=== PATIENT | female | born 1990 | race Hispanic/Latino ===

== ENCOUNTER 2017-02-10 15:27 | Emergency (ER) | payer SELFPAY ==
[2017-02-10] MEDS ORDERED: Ondansetron ODT 4 MG TAB ONE (15:44)
[2017-02-10 18:14] LABS: Bilirubin Negative (Negative); Blood, Urine Negative (Negative); Glucose, Urine (Dipstick) Negative (Negative); Ketone, Urine Negative (Negative); Nitrite Negative (Negative); Protein, Urine (Dipstick) Negative (Neg-Trace)
[2017-02-10 18:16] LABS: Bacteria/HPF 3+ HPF (None Seen); Hyaline Casts/LPF 0-3 HYALINE CAST LPF (0-3 Hyaline); WBC/HPF 21-50 HPF (0-3)
[2017-02-10 19:03] LABS: #Basophils 0.1 thou/uL (0.0-0.2); #Eosinphils 0.3 thou/uL (0.0-0.7); #Lymphocytes 1.7 thou/uL (1.20-3.40); #Monocytes 0.4 thou/uL (0.11-0.59); #Neutrophils 4.2 thou/uL (1.40-6.50); %Basophils 1.2 % (0.0-1.0); %Eosinophils 4.8 % (0.0-10.0); %Lymphocytes 25.5 % (21.0-51.0); %Monocytes 6.5 % (0.0-10.0); Hematocrit 38.1 % (36.0-47.0); Mean Platelet Volume 8.1 fL (7.4-10.4); White Blood Cell (WBC) Count 6.8 thou/uL (4.8-10.8)
[2017-02-10 19:15] LABS: ALT (SGPT) 27 U/L (8-55); AST (SGOT) 20 U/L (5-34); Alkaline Phosphatase 61 U/L (40-150); Anion Gap 14 mmol/L (10-20); BUN (Urea Nitrogen) 9 mg/dL (7.0-18.7); Bilirubin, Total 0.4 mg/dL (0.2-1.2); Calc. Creatinine Clearance 0 mL/min (70-130); Calcium 9.1 mg/dL (7.8-10.44); Carbon Dioxide 23 mmol/L (22-29); Chloride 103 mmol/L (98-107); Estimated GFR-MDRD Greater than 90; Globulin 3.5 g/dL (2.4-3.5); Lipase 29 U/L (8-78); Protein, Total 7.7 g/dL (6.0-8.3)
--- NOTE | 2017-02-10 21:32 | ULT ---
ULTRASOUND GALLBLADDER RIGHT UPPER QUADRANT: Date: 02/10/17 HISTORY: Right upper quadrant pain. COMPARISON: Prior ultrasound dated 05/13/15. TECHNIQUE: Real-time Delong scale and color Doppler with spectral analysis of right upper quadrant was performed w ith the curvilinear transducer. FINDINGS: The hepatic echotexture is increased. No cholelithiasis. Pancreas is not well seen. Gallbladder wall thickness is normal. Right kidney measures 10.9 x 4.3 x 5.4 cm. Sonographic Man's sign is negative . The common bile duct measures 4.0 mm and is normal. IMPRESSION: 1. No evidence of cholelithiasis or cholecystitis. 2. Increased hepatic echotexture indicative of steatosis. POS: AYUSHH
== END 2017-02-10 22:08 | disposition home or self-care (01) ==
LOC: ERS 15:27
DX: N39.0 Urinary tract infection, site not specified (principal); E03.9 Hypothyroidism, unspecified; E66.9 Obesity, unspecified
CPT/HCPCS: 76705; 80053; 81003; 81015; 81025; 83690; 85025; Q0162

== ENCOUNTER 2017-04-26 20:30 | Emergency (ER) | payer SELFPAY ==
[2017-04-26] MEDS ORDERED: Acetaminophen 500 MG TAB ONE (21:58)
== END 2017-04-26 22:09 | disposition home or self-care (01) ==
LOC: ERS 20:30
DX: J02.9 Acute pharyngitis, unspecified (principal); E03.9 Hypothyroidism, unspecified; E66.9 Obesity, unspecified; Z79.899 Other long term (current) drug therapy
CPT/HCPCS: 87081; 87430; 99283

== ENCOUNTER 2017-08-21 18:04 | Emergency (ER) | payer SELFPAY ==
[2017-08-21 18:49] LABS: #Eosinphils 0.3 thou/uL (0.0-0.7); #Lymphocytes 1.5 thou/uL (1.20-3.40); #Monocytes 0.5 thou/uL (0.11-0.59); #Neutrophils 3.4 thou/uL (1.40-6.50); %Basophils 0.4 % (0.0-1.0); %Eosinophils 5.2 % (0.0-10.0); %Lymphocytes 26.6 % (21.0-51.0); %Monocytes 8.5 % (0.0-10.0); %Neutrophils 59.4 % (42.0-75.0); Hemoglobin 11.8 g/dL (12.0-16.0); Mean Corpuscular Hemoglobin 30.9 pg (27.0-31.0); Mean Corpuscular Volume 88.4 fl (81.0-99.0); Platelet Count 230 thou/uL (130-400); RBC Distribution Width 12.9 % (11.5-14.5); Red Blood Cell (RBC) Count 3.83 mill/uL (4.20-5.40); White Blood Cell (WBC) Count 5.7 thou/uL (4.8-10.8)
[2017-08-21 19:08] LABS: ALT (SGPT) 12 U/L (8-55); AST (SGOT) 11 U/L (5-34); Albumin 3.4 g/dL (3.5-5.0); Alkaline Phosphatase 48 U/L (40-150); Anion Gap 12 mmol/L (10-20); BUN (Urea Nitrogen) 5 mg/dL (7.0-18.7); Bilirubin, Total 0.2 mg/dL (0.2-1.2); Calc. Creatinine Clearance 0 mL/min (70-130); Calcium 9.5 mg/dL (7.8-10.44); Carbon Dioxide 21 mmol/L (22-29); Chloride 107 mmol/L (98-107); Estimated GFR-MDRD Greater than 90; Globulin 3.2 g/dL (2.4-3.5); Glucose 111 mg/dL (70-105); Potassium 3.2 mmol/L (3.5-5.1); Protein, Total 6.6 g/dL (6.0-8.3); Sodium 137 mmol/L (136-145)
[2017-08-21] MEDS ORDERED: Acetaminophen 500 MG TAB ONE (19:48)
[2017-08-21 19:51] LABS: Bilirubin Negative (Negative); Blood, Urine Negative (Negative); Clarity CLOUDY (Clear); Glucose, Urine (Dipstick) Negative (Negative); Leukocyte Large (Negative); Nitrite Negative (Negative); Protein, Urine (Dipstick) Negative (Neg-Trace); Specific Gravity, Urine 1.006 (1.002-1.036); pH, Urine 7.5 (5.0-9.0)
[2017-08-21 19:53] LABS: Bacteria/HPF Rare-Few HPF (None Seen); Hyaline Casts/LPF 0-3 HYALINE CAST LPF (0-3 Hyaline); Pathc Cast-AUWi Flag 0.43 (0-2.49); RBC/HPF 0-3 HPF (0-3); Squamous Epithelial 0-3 HPF (0-3)
[2017-08-21] MEDS ORDERED: diphenhydrAMINE 50 MG/ML VIAL ONE (20:16)
[2017-08-21] MEDS ORDERED: Metoclopramide HCl 10 MG/2 ML VIAL ONE (20:16)
--- NOTE | 2017-08-21 21:15 | ULT ---
OB/PELVIC ULTRASOUND 08/21/17 HISTORY: female with abdominal pain. TECHNIQUE: Multiplanar snowden scale and color doppler images were obtained in a transabdominal pelvic/ ultras ound. FINDINGS: There is a single live intrauterine with heart rate of 149 beats per minute. A limited feta l survey was performed which is unremarkable. The heart, stomach, umbilical cord insertion, umbilical cord, and bladder were unremarkable. Average age of the fetus based off today's examination is 16 we eks, 1 day. The following measurements were taken and dates based off these measurements are as follo ws: BPD 3.32 cm 16 weeks, 2 days HC 12.71 cm 16 weeks, 3 days AC 10.61 cm 16 weeks, 4 days FL 2.10 cm 16 weeks, 2 days The placenta is anterior/fundal in location without definite abnormality. Amniotic fluid volume is chawla bjectively within normal limits. The cervix is normal in length without evidence of funneling or plac ental previa. IMPRESSION: Single live intrauterine with estimated age of 16 weeks, 1 day. POS: BRUCE
[2017-08-21] MEDS ORDERED: Potassium Chloride 20 MEQ TAB ONE (21:52)
== END 2017-08-21 22:37 | disposition home or self-care (01) ==
LOC: ERS 18:04
DX: O21.0 Mild hyperemesis gravidarum (principal); E66.9 Obesity, unspecified; E03.9 Hypothyroidism, unspecified; Z3A.12 12 weeks gestation of pregnancy
CPT/HCPCS: 36415; 76856; 80053; 81003; 81015; 85025; 93976; 96361; 96365; 96366; 96375; J1200; J2765

== ENCOUNTER 2017-11-06 17:58 | Inpatient (IN) | payer MEDICAID, SELFPAY ==
[2017-11-06 18:52] VITALS: BMI 34.6
[2017-11-06] MEDS ORDERED: Lactated Ringer's 1,000 ML IV SCH (19:45)
--- NOTE | 2017-11-06 19:46 | HP ---
DATE OF SERVICE: 11/06/2017 TIME: 1919. LOCATION: Labor and Delivery Triage bed B. REASON FOR EVALUATION: Burning on urination in the second trimester. This patient was first evaluated by the clinic and the resident team who was trade union official. HISTORY OF PRESENT ILLNESS: In brief, this is a 27-year-old G4, P3 with a chief complaint of burning with urination. She has a history of 3 prior vaginal deliveries, but her care was otherwis e uncomplicated. Her EDC is February 03, 2018. Her EGA is 27 weeks and 2 days. She has no issues, but she does state that this burning on urination began today. ALLERGIES: None. SOCIAL HISTORY: None. OB HISTORY: Significant for 3 prior vaginal deliveries. PAST SURGICAL HISTORY: None. MEDICAL HISTORY: None. PHYSICAL EXAMINATION: VITAL SIGNS: Blood pressure is 117/80, temperature is 98, pulse is in the 80s. GENERAL: Clinically, she is in no acute distress. ABDOMEN: Soft and nontender with no palpable contractions. There is no evidence of vaginal bleeding or ruptured membranes grossly. There is a possible slight but not very impressive costovertebral an gle tenderness on the right side. There is no palpable contractions. On the monitor, he art tones are in the 130s to 140s with moderate variability and acelerations. There are no decelerat ions. There are no contractions on the tocodynamometer. There is moderate variability. ASSESSMENT: This is a week and 2 days with burning on urination. The patient of the [facility]. PLAN: 1. I have ordered a cath urinalysis with reflex micro. 2. I have also ordered a complete metabolic profile and CBC. 3. I have ordered 1 liter of LR hydration just for symptomatic relief for the patient. We will awai t disposition until we get more information based on the patient's labs.
--- NOTE | 2017-11-06 19:52 | PDOC.LDHP ---
Labor and Delivery H&P Chief complaint: other (burning with urination) HPI: 27 year old presents with burning during urination since this morning. She reports scant amount of blood with urination and right sided back pain for 3 days. She denies fever/chills, headache/changes in vision, CP/SOB, N/V/D. She was seen at [facility] this morning for a pap smear. She has had an uncomplicated current and previous , no concerns on ultrasound. She reports that all of her labs have come back good. Current gestational age (weeks): 27 ( and 2 days ) Due date: 02/03/18 Dating criteria: first trimester ultrasound Grav: 4 Para: 3 OB History Details: 3 Current complications: none Abnormal US findings: No Past Medical History: none Current medications: pre- vitamins Previous surgical history: none Allergies/Adverse Reactions: Allergies Allergy/AdvReac Type Severity Reaction Status Date / Time No Known Allergies Allergy Verified 12/03/13 21:31 Social history: none - Physical Exam Vital signs reviewed and normal: yes General: NAD Heart: RRR Lungs: CTAB Abdomen: other (R CVAT tenderness) Extremeties: no edema FHT: variability present (baseline 150, accelerations x3) - OB Labs Blood type: unknown - Assessment Possible UTI vs Pyelonephritis vs musculoskeletal pain - Plan Plan: observation in L&D -: Straight cath UA with reflex micro, IVF, CBC. monitoring.
[2017-11-06 20:32] LABS: #Eosinphils 0.2 thou/uL (0.0-0.7); #Lymphocytes 1.4 thou/uL (1.20-3.40); #Monocytes 0.4 thou/uL (0.11-0.59); #Neutrophils 4.2 thou/uL (1.40-6.50); %Basophils 0.6 % (0.0-1.0); %Eosinophils 2.5 % (0.0-10.0); %Lymphocytes 22.3 % (21.0-51.0); %Neutrophils 67.5 % (42.0-75.0); Hemoglobin 11.8 g/dL (12.0-16.0); Mean Corpuscular HGB CONC 35.7 g/dL (32.0-36.0); Mean Corpuscular Hemoglobin 30.2 pg (27.0-31.0); Mean Corpuscular Volume 84.7 fL (78.0-98.0); Mean Platelet Volume 7.6 fL (7.4-10.4); Platelet Count 280 thou/uL (130-400); RBC Distribution Width 12.6 % (11.5-14.5); Red Blood Cell (RBC) Count 3.89 mill/uL (4.20-5.40); White Blood Cell (WBC) Count 6.3 thou/uL (4.8-10.8)
[2017-11-06 20:39] LABS: Bilirubin Negative (Negative); Blood, Urine Large (Negative); Clarity CLEAR (Clear); Glucose, Urine (Dipstick) Negative (Negative); Leukocyte Moderate (Negative); Nitrite Negative (Negative); Protein, Urine (Dipstick) Negative (Neg-Trace); Specific Gravity, Urine 1.014 (1.002-1.036)
[2017-11-06 20:43] LABS: Bacteria/HPF Rare-Few HPF (None Seen); Hyaline Casts/LPF 0-3 HYALINE CAST LPF (0-3 Hyaline); Pathc Cast-AUWi Flag 0.14 (0-2.49); RBC/HPF GREATER THAN 50-TNTC HPF (0-3); Squamous Epithelial 0-3 HPF (0-3)
[2017-11-06 20:52] LABS: ALT (SGPT) 12 U/L (8-55); AST (SGOT) 17 U/L (5-34); Albumin 3.6 g/dL (3.5-5.0); Alkaline Phosphatase 90 U/L (40-150); Anion Gap 13 mmol/L (10-20); BUN (Urea Nitrogen) 5 mg/dL (7.0-18.7); Bilirubin, Total 0.4 mg/dL (0.2-1.2); Calc. Creatinine Clearance 233 mL/min (70-130); Calcium 9.1 mg/dL (7.8-10.44); Carbon Dioxide 22 mmol/L (22-29); Chloride 105 mmol/L (98-107); Estimated GFR-MDRD Greater than 90; Globulin 3.5 g/dL (2.4-3.5); Glucose 83 mg/dL (70-105); Protein, Total 7.1 g/dL (6.0-8.3); Sodium 136 mmol/L (136-145)
[2017-11-06] MEDS ORDERED: Ondansetron HCl/PF 4 MG/2 ML Vial IVP PRN (21:22)
[2017-11-06] MEDS ORDERED: Promethazine HCl 25 MG/ML VIAL IM PRN (21:22)
--- NOTE | 2017-11-06 21:25 | PDOC.EVN ---
Event Note - Event Note Event Note: Lab Check: WBC normal at 6, Hct 33. UA with evidence UTI...I have requested urine and blood cultures. Emperic DX of pyelo. We will admit for IC rocphin pending culture results.
--- NOTE | 2017-11-06 21:40 | PDOC.OBTPN ---
FMR OB Triage PN:Sub - Interval History Chief Complaint: Burning with urination Indentification: 27 y/o at 27.2 wks R OB Triage PN:Obj - Maternal Vital signs: BP: [] HR: [74] RR: [18] Tmax: [99] Pox: []% on [] Wt: [] - Heart Tones Baseline: 140 Variability: moderate R OB Triage PN:Exam - Physical Exam General: NAD Heart: RRR, normal S1/S2 General: CTAB Abdomen: soft (lower quadrant pain) R OB Triage PN:Data - Labs Lab results: Laboratory Results - last 24 hr 11/06/17 11/06/17 11/06/17 20:20 20:20 20:20 WBC 6.3 RBC 3.89 L Hgb 11.8 L Hct 33.0 L MCV 84.7 MCH 30.2 MCHC 35.7 RDW 12.6 Plt Count 280 MPV 7.6 Neutrophils % 67.5 Lymphocytes % 22.3 Monocytes % 7.0 Eosinophils % 2.5 Basophils % 0.6 Neutrophils # 4.2 Lymphocytes # 1.4 Monocytes # 0.4 Eosinophils # 0.2 Basophils # 0.0 Sodium 136 Potassium 4.0 Chloride 105 Carbon Dioxide 22 Anion Gap 13 BUN 5 L Creatinine 0.55 L Estimated GFR (MDRD) Greater than 90 Glucose 83 Calcium 9.1 Total Bilirubin 0.4 AST 17 ALT 12 Alkaline Phosphatase 90 Serum Total Protein 7.1 Albumin 3.6 Globulin 3.5 Albumin/Globulin Ratio 1.0 L Urine Color YELLOW Urine Clarity CLEAR Urine pH 7.0 Ur Specific [employer] [place] 1.014 Urine Protein Negative Urine Glucose (UA) Negative Urine Ketones Trace H Urine Blood Large H Urine Nitrite Negative Urine Bilirubin Negative Urine Urobilinogen 1.0 Ur Leukocyte Esterase Moderate H Urine RBC GREATER THAN 50-TNTC H Urine WBC 11-20 H Ur Squamous Epith Cells 0-3 Urine Bacteria Rare-Few Hyaline Casts 0-3 HYALINE CAST R OB Triage PN:A/P - Problem List (1) Pyelonephritis Current Visit: Yes Status: Acute Code(s): N12 - TUBULO-INTERSTITIAL NEPHRITIS, NOT SPCF ACUTE OR CHRONIC Assessment and Plan: Admit to inpatient for suspected pyelonephritis - Rochepin and IV fluids - blood/urine cultures - Repeat CBC Disposition: Continued monitoring, observe for elevated temperature and increased WBC counts, await culture results for directed antibiotic therapy Discussion: Date/Time: 11/06/172137 This H&P was discussed with [Todd] and [Kavon] who agree with the above documentation and plan.
[2017-11-06] MEDS: Sodium Chloride 0.9% 1,000 ML IV SCH (22:25)
[2017-11-06] MEDS: cefTRIAXone\\ROCEPHIN 1 GM in Sodium Chloride 0.9% 100 ML IVPB SCH (22:26)
[2017-11-06] MEDS: Lactated Ringer's 1,000 ML IV SCH (23:37)
[2017-11-07 05:50] LABS: #Basophils 0.1 thou/uL (0.0-0.2); #Eosinphils 0.2 thou/uL (0.0-0.7); #Lymphocytes 1.5 thou/uL (1.20-3.40); #Monocytes 0.4 thou/uL (0.11-0.59); #Neutrophils 3.2 thou/uL (1.40-6.50); %Eosinophils 4.3 % (0.0-10.0); %Lymphocytes 28.2 % (21.0-51.0); %Neutrophils 58.5 % (42.0-75.0); Hemoglobin 10.1 g/dL (12.0-16.0); Mean Corpuscular HGB CONC 35.9 g/dL (32.0-36.0); Mean Corpuscular Hemoglobin 30.5 pg (27.0-31.0); Mean Corpuscular Volume 85.1 fL (78.0-98.0); Mean Platelet Volume 7.4 fL (7.4-10.4); Platelet Count 229 thou/uL (130-400); RBC Distribution Width 12.5 % (11.5-14.5); Red Blood Cell (RBC) Count 3.32 mill/uL (4.20-5.40); White Blood Cell (WBC) Count 5.4 thou/uL (4.8-10.8)
--- NOTE | 2017-11-07 05:55 | PDOC.EVN ---
Event Note - Event Note Event Note: Lab check: repeat CBC with normal WBC count. I have asked to concert the UA to culture as not ordered yesterday. Currently afebrile.
[2017-11-07] MEDS: Lactated Ringer's 1,000 ML IV SCH ×3 (06:03→21:47)
--- NOTE | 2017-11-07 06:29 | PDOC.EVN ---
Event Note - Event Note Event Note: 11/07/17 @ 0625: Location: 302 ABX: IV Rocephin S. Feels better, no CTX, no LOF, no VBV. Good FM O. Afebrile. TMax 99.2 Urine culture and blood culture pending A/P: HD2, ABX Day 1...possible pyelo (soft call for CVAT). EGA 27 weeks 3 days. 1. await cultures 2. Clinically well Consider [facility] home after confirmed afebrile for 24 hours (Tomorrow AM?), with outpatient po macrobid X 7 days with urine culture check as outpatient if not back by [facility].
[2017-11-07] MEDS: Sodium Chloride 0.9% 1,000 ML IV SCH ×3 (06:55→21:46)
--- NOTE | 2017-11-07 07:24 | PDOC.OBLPN ---
FMR OB Labor PN: Subj - Interval History Hospital Day: 1 Chief Complaint: dysuria, back pain Interval History: Doing well. Afebrile. Improved dysuria/back pain. +FM, no LOF, VB. NAEO. FMR OB Labor PN: Obj - Maternal Vital signs: BP: [] HR: [] RR: [] Tmax: [] Pox: []% on [] Wt: [] - Urine output I&O: 11/06/17 11/07/17 11/08/17 06:59 06:59 06:59 Intake Total 1350 Output Total 200 Balance 1150 FMR OB Labor PN: Exam - Physical Exam General: NAD, awake, alert and oriented HEENT: MMM Heart: RRR, normal S1/S2 General: CTAB, no respiratory distress, good air movement, no wheezing Abdomen: soft, gravid, non-tender Deviation from normal: + CVAT on R Musculoskeletal: pulses present Psychiatric: normal mood and affect FMR OB Labor PN: Data - Labs Lab results: Laboratory Results - last 24 hr 11/06/17 11/06/17 11/06/17 20:20 20:20 20:20 WBC 6.3 RBC 3.89 L Hgb 11.8 L Hct 33.0 L MCV 84.7 MCH 30.2 MCHC 35.7 RDW 12.6 Plt Count 280 MPV 7.6 Neutrophils % 67.5 Lymphocytes % 22.3 Monocytes % 7.0 Eosinophils % 2.5 Basophils % 0.6 Neutrophils # 4.2 Lymphocytes # 1.4 Monocytes # 0.4 Eosinophils # 0.2 Basophils # 0.0 Sodium 136 Potassium 4.0 Chloride 105 Carbon Dioxide 22 Anion Gap 13 BUN 5 L Creatinine 0.55 L Estimated GFR (MDRD) Greater than 90 Glucose 83 Calcium 9.1 Total Bilirubin 0.4 AST 17 ALT 12 Alkaline Phosphatase 90 Serum Total Protein 7.1 Albumin 3.6 Globulin 3.5 Albumin/Globulin Ratio 1.0 L Urine Color YELLOW Urine Clarity CLEAR Urine pH 7.0 Ur Specific [place] 1.014 Urine Protein Negative Urine Glucose (UA) Negative Urine Ketones Trace H Urine Blood Large H Urine Nitrite Negative Urine Bilirubin Negative Urine Urobilinogen 1.0 Ur Leukocyte Esterase Moderate H Urine RBC GREATER THAN 50-TNTC H Urine WBC 11-20 H Ur Squamous Epith Cells 0-3 Urine Bacteria Rare-Few Hyaline Casts 0-3 HYALINE CAST 08/16/18 05:34 WBC 5.4 RBC 3.32 L Hgb 10.1 L Hct 28.2 L MCV 85.1 MCH 30.5 MCHC 35.9 RDW 12.5 Plt Count 229 MPV 7.4 Neutrophils % 58.5 Lymphocytes % 28.2 Monocytes % 8.0 Eosinophils % 4.3 Basophils % 1.0 Neutrophils # 3.2 Lymphocytes # 1.5 Monocytes # 0.4 Eosinophils # 0.2 Basophils # 0.1 Sodium Potassium Chloride Carbon Dioxide Anion Gap BUN Creatinine Estimated GFR (MDRD) Glucose Calcium Total Bilirubin AST ALT Alkaline Phosphatase Serum Total Protein Albumin Globulin Albumin/Globulin Ratio Urine Color Urine Clarity Urine pH Ur Specific [place] Urine Protein Urine Glucose (UA) Urine Ketones Urine Blood Urine Nitrite Urine Bilirubin Urine Urobilinogen Ur Leukocyte Esterase Urine RBC Urine WBC Ur Squamous Epith Cells Urine Bacteria Hyaline Casts FMR OB Labor PN: A/P - Problem List (1) Pyelonephritis Current Visit: Yes Status: Acute Code(s): N12 - TUBULO-INTERSTITIAL NEPHRITIS, NOT SPCF ACUTE OR CHRONIC Assessment and Plan: Improved. VSS, afebrile since admission. Continue IV Rocephin. Awaiting blood/ urine cx. Plan to d/c tomorrow. (2) Multigravida in second trimester Current Visit: Yes Status: Acute Code(s): Z34.82 - ENCOUNTER FOR SUPRVSN OF NORMAL , SECOND TRIMESTER Assessment and Plan: at 27w4d. continue monitoring of . No need for continuous monitoring. Reports good FM, no VB, Ctx, or LOF. Discussion: Date/Time: 11/07/17721 This H&P was discussed with [] and [] who agree with the above documentation and plan.
[2017-11-07] MEDS: Acetaminophen 500 MG TAB PO PRN ×2 (07:42→18:08)
[2017-11-07] MEDS: cefTRIAXone\\ROCEPHIN 1 GM in Sodium Chloride 0.9% 100 ML IVPB SCH (21:46)
--- NOTE | 2017-11-08 06:11 | PDOC.OBLPN ---
FMR OB Labor PN: Subj - Interval History Hospital Day: 2 Chief Complaint: Dysuria, back pain Interval History: Pt. denies back pain, dysuria, or dyspnea. +FM, no LOF. No complaints FMR OB Labor PN: Obj - Maternal Vital signs: BP: [107/53] HR: [75] RR: [18] Tmax: [98.5] Pox: [96]% on [RA] Wt: [94.3] - Urine output I&O: 11/06/17 11/07/17 11/08/17 06:59 06:59 06:59 Intake Total 1350 1225 Output Total 200 Balance 1150 1225 FMR OB Labor PN: Exam - Physical Exam General: NAD, awake, alert and oriented HEENT: normocephalic and atraumatic, MMM, grossly normal hearing Neck: FROM, no JVD Chest: non-tender to palpation, no lesions Heart: RRR, normal S1/S2, no murmurs/rubs/gallops, pulses present General: CTAB, no respiratory distress, good air movement, no wheezing Abdomen: soft, gravid, bowel sound present Musculoskeletal: pulses present Neurological: sensation to pain,touch and proprioception grossly normal Skin: capillary refill <2 seconds Psychiatric: normal mood and affect FMR OB Labor PN: Data - Labs Lab results: Blood cultures NGTD FMR OB Labor PN: A/P - Problem List (1) Pyelonephritis Status: Acute Code(s): N12 - TUBULO-INTERSTITIAL NEPHRITIS, NOT SPCF ACUTE OR CHRONIC Assessment and Plan: CVA tenderness resolved. Pt. is clinically improving, VSS, afebrile. Pending blood culture, NGTD at ~32hours. We will plan to send patient home today. (2) Multigravida in second trimester Status: Acute Code(s): Z34.82 - ENCOUNTER FOR SUPRVSN OF NORMAL , SECOND TRIMESTER Assessment and Plan: at 27w5d. We will continue monitoring and encouraged follow up with OB doctor. Reports FM, no LOF, no contractions Disposition: Home today Discussion: Date/Time: 11/08/17 0608 This H&P was discussed with [] and [] who agree with the above documentation and plan. Attending Addendum - Attending Addendum Date/Time: 11/08/17 1011 I personally evaluated the patient and discussed the management with Dr. Rodriguez. I agree with the Assessment and Plan documented.
[2017-11-08] MEDS: Lactated Ringer's 1,000 ML IV SCH (06:49)
[2017-11-08 08:34] VITALS: BP 124/57; TEMP 97.9
--- NOTE | 2017-11-11 13:22 | DIS-2 ---
DATE OF ADMISSION: 11/06/2017 DATE OF DISCHARGE: 11/08/2017 RESIDENT: Romeo Rodriguez D.O. DISCHARGE ATTENDING: Roddy Estrada M.D. CONSULTATIONS: None. PROCEDURES: None. PRIMARY DIAGNOSIS: Pyelonephritis. SECONDARY DIAGNOSIS: Multigravida in second trimester. DISCHARGE MEDICATIONS: Keflex 500 mg p.o. b.i.d. for 5 days. DISCONTINUED MEDICATIONS: None. HOSPITAL COURSE: This 27-year-old G4, P3 at 27 weeks and 2 days presenting with burning on urination since this morning. She reported scant amount of blood with urination right-sided back pain for 3 d ays. She denies fever, chills, headaches, change in her vision, chest pain, shortness of breath, rachael sea, vomiting, or diarrhea. She was seen in Clinic this morning for Pap smear. She has had uncomplicated current and previous pregnancies, no concerns on ultrasound. She reports that all of the labs have come back good. While she was here, she was diagnosed with pyelonephritis based on her urinalysis, which was positive for blood, leukocyte esterase, white blood cells, and red blood cells . When she was here, she received Rocephin 1 gram q.24 hours. The patient improved clinically at th e time of discharge. Denied any back pain, dysuria, dyspnea and reports movement with no loss of fluid. The patient has no other complaints. DISPOSITION: Stable. DISCHARGE INSTRUCTIONS: 1. Location: Home. 2. Diet: Full. 3. Activity: As tolerated. 4. Followup: Follow up with primary care physician in 1-2 weeks.
--- NOTE | 2017-11-11 22:44 | DIS-2 ---
DATE OF ADMISSION: 11/06/2017 DATE OF DISCHARGE: 11/08/2017 RESIDENT: Kristine Weber DO ADMITTING ATTENDING: Noah Brooks MD DISCHARGE ATTENDING: Roddy Estrada MD CONSULTATION: None. PROCEDURE/IMAGING: None. PRIMARY DIAGNOSES: 1. Pyelonephritis. 2. Multigravida in second trimester. DISCHARGE MEDICATIONS: 1. vitamin. 2. Keflex 500 mg b.i.d. to complete a 7-day course. DISCONTINUED MEDICATIONS: None. HISTORY OF PRESENT ILLNESS AND HOSPITAL COURSE: The patient is a 27-year-old, G4, P3 who presented w ith burning during urination since the morning of arrival. She did admit to some hematuria and right -sided back pain. No fever or chills. No current complications with . She is at 27 weeks and 2 days on initial presentation. She is dated by her first trimester ultrasound. She has no hist ory of complications with her 3 prior spontaneous vaginal deliveries. On exam, there was right CVA t enderness. Vital signs include normal respiratory rate, afebrile, and normal pulse. A UA was collec nikole showing large blood and moderate leukocyte esterase with 11-20 white blood cells and greater than 50 red blood cells. The patient was started on Rocephin for probable UTI versus pyelonephritis. Th e patient began to feel better with this treatment. She remained afebrile. Other vital signs remain ed within normal limits. On day 2 of admission, she was feeling much improved and she had been monit ored for 48 hours without any fever. Urine cultures and blood cultures are negative. The patient wa s switched to Keflex p.o. for discharge to complete a 7-day course. DISPOSITION: Stable. DISCHARGE INSTRUCTIONS: 1. Location: Home. 2. Diet: Regular. 3. Activity: As tolerated. 4. Follow up at Clinic within the next week.
== END 2017-11-08 09:45 | disposition home or self-care (01) | DRG 782 ==
LOC: L&D/OP 17:58 → L&D 22:08 → 3SE 23:50
PROVIDERS: ADMIT Obstetrics & Gynecology; ATTEND Family Medicine
DX: O75.3 Other infection during labor (principal); N10 Acute pyelonephritis; Z3A.27 27 weeks gestation of pregnancy
CPT/HCPCS: 36415; 80053; 81003; 81015; 85025; 87040; 87086; 99284; A4216; J0696; J7050

== ENCOUNTER 2017-12-18 11:48 | Day surgery (SDC) | payer MEDICAID, SELFPAY ==
[2017-12-18 12:32] VITALS: BMI 41.5
--- NOTE | 2017-12-18 12:59 | PDOC.FPROB ---
FMR OB H&P: HPI - History of Present Illness Chief Complaint: elevated BP History of Present Illness: 27 yo @ 33.2 by LMP c/w 16.1 week sono presents from [facility] for evaluation of elevated BP. Pt had 3 BPs > 140s systolic at [facility]. Her BP was 144/71 maximum at clinic. She reported headache at that visit; however, she currently denies. She reports good movement, denies vaginal bleeding, discharge, contractions, urinary frequency, urgency and dysuria. [facility] H&P: Current - Care : 4 Para: 3003 Gestational age: 33.2 Due date: 02/03/2018 Dating Criteria: LMP c/w 16.1 sono Course/Complications: Chlamydia positive, s/p rx, JERRELL pending, h/o dengue fever, h/o preeclampsia - OB Labs Blood type: O RH: positive Antibody Screen: negative HIV: negative RPR: negative HepBsAg: negative Rubella: immune Quad screen: unknown Urine drug screen: not done Gonorrhea: negative Chlamydia: positive Pap Smear: NILM 1 hour gtt: 88 A1c: 5.3 GBS: unknown H&H: 12.7/33.7 Platelets: 301 Additional labs: IgG Dengue fever, Negative FMR OB H&P: History - Past Medical History PMH: H/o dengue fever, morbid obesity - OB History OB History: H/O preeclampsia, h/o dengue fever FMR OB H&P: Medications - Current Home Medications: Medication Instructions Recorded Confirmed Type Pnv No.95/Ferrous Fum/Folic AC 1 tablet PO DAILY 11/25/13 11/28/17 History [ Tablet] Allergies/Adverse Reactions: Allergies Allergy/AdvReac Type Severity Reaction Status Date / Time No Known Allergies Allergy Verified 11/28/17 13:36 FMR OB H&P: ROS - Review of Systems General: denies: fever/chills Eyes: denies: vision changes, scotomas ENT: denies: nasal congestion, rhinorrhea Cardiovascular: denies: chest pain, edema Respiratory: denies: cough, shortness of breath Gastrointestinal: denies: abdominal pain, cramping, nausea, vomiting, diarrhea, constipation Genitourinary (Female): denies: incontinence, dysuria, hematuria, polyuria, vaginal discharge, vaginal pain, vaginal bleeding, contractions, vaginal pressure Musculoskeletal: denies: pain, stiffness Neurologic: denies: numbness, weakness Integumentary: denies: rash FMR OB H&P: Vital Signs - Maternal Vital signs: 133/68, 86BPM, RR 18, Tmax 98F - Heart Tones Baseline: 140 (Reactive) Variability: moderate Acceleration: present Deceleration: absent Orr contractions every: None FMR OB H&P: Physical Exam - Physical Exam General: NAD, awake, alert and oriented HEENT: normocephalic and atraumatic, PERRLA, EOMI, MMM, conjunctiva clear, no scleral icterus, grossly normal vision, grossly normal hearing Neck: trachea midline, no JVD Chest: non-tender to palpation Heart: RRR, normal S1/S2, no murmurs/rubs/gallops, pulses present General: CTAB, no respiratory distress, good air movement, no rales/rhonchi, no wheezing, no retractions Abdomen: soft, gravid, non-tender, bowel sound present, no masses Neurological: DTR +2, no clonus, no focal deficit Skin: no rash, good tugor Lymphatic: no petechia Psychiatric: normal mood and affect FMR OB H&P: A/P - Problem List (1) Hx of pre-eclampsia in prior , currently Status: Acute Code(s): O09.299 - SUPRVSN OF PREG W POOR REPRODCTV OR OBSTET HISTORY, UNSP TRI Assessment and Plan: Pt had elevated BPs in clinic, will check pre-e labs and r/o preeclampsia. BPs in triage have been normal and max of 133 systolic. Had recent preeclampsia workup on Nov 28 which was negative. Uric acid at that time was 3.4. Will recheck labs and dispo pending results. Pt has h/o positive chlamydia given rx in [facility]. No test of cure yet. Dirty catch urine for JERRELL. Likely stable for dc to home with negative lab work as BPs in hospital have been negative. (2) Hypothyroid Status: Acute Code(s): E03.9 - HYPOTHYROIDISM, UNSPECIFIED Qualifiers: Hypothyroidism type: unspecified Qualified Code(s): E03.9 - Hypothyroidism , unspecified Assessment and Plan: Recheck TSH, pt reports she is not taking synthroid at home. (3) Obesity Status: Acute Code(s): E66.9 - OBESITY, UNSPECIFIED Assessment and Plan: Recommend dietary/lifestyle modifications. Stable. Disposition: Stable Discussion: Date/Time: 12/18/17 8947 This H&P was discussed with Dr. Maldonado who agree with the above documentation and plan. Attending Addendum - Attending Addendum Date/Time: 12/18/17 2024 I personally evaluated the patient and discussed the management with Dr. Nascimento I agree with the History, Examination, Assessment and Plan documented above with any addition or exceptions noted below. Asymptomatic. Labs pending. Continue BP monitoring q 20mins. Olive
[2017-12-18 13:10] LABS: Bilirubin Negative (Negative); Blood, Urine Negative (Negative); Clarity CLOUDY (Clear); Glucose, Urine (Dipstick) Negative (Negative); Leukocyte Large (Negative); Nitrite Negative (Negative); Protein, Urine (Dipstick) Negative (Neg-Trace); Specific Gravity, Urine 1.016 (1.002-1.036)
[2017-12-18 13:19] LABS: #Eosinphils 0.2 thou/uL (0.0-0.7); #Lymphocytes 1.4 thou/uL (1.20-3.40); #Monocytes 0.5 thou/uL (0.11-0.59); #Neutrophils 3.3 thou/uL (1.40-6.50); %Basophils 0.7 % (0.0-1.0); %Eosinophils 3.1 % (0.0-10.0); %Lymphocytes 25.7 % (21.0-51.0); %Monocytes 9.9 % (0.0-10.0); %Neutrophils 60.7 % (42.0-75.0); Mean Corpuscular HGB CONC 32.4 g/dL (32.0-36.0); Mean Corpuscular Volume 80.3 fL (78.0-98.0); Mean Platelet Volume 8.1 fL (7.4-10.4); Platelet Count 284 thou/uL (130-400); RBC Distribution Width 13.5 % (11.5-14.5); Red Blood Cell (RBC) Count 3.86 mill/uL (4.20-5.40); White Blood Cell (WBC) Count 5.4 thou/uL (4.8-10.8)
[2017-12-18 13:30] LABS: Creatinine, Urine 82.43 mg/dL (47-110)
[2017-12-18 13:35] LABS: ALT (SGPT) 7 U/L (8-55); AST (SGOT) 14 U/L (5-34); Albumin 2.9 g/dL (3.5-5.0); Alkaline Phosphatase 119 U/L (40-150); Anion Gap 11 mmol/L (10-20); BUN (Urea Nitrogen) 4 mg/dL (7.0-18.7); Bilirubin, Total 0.3 mg/dL (0.2-1.2); Calc. Creatinine Clearance 261 mL/min (70-130); Calcium 8.9 mg/dL (7.8-10.44); Carbon Dioxide 21 mmol/L (22-29); Chloride 107 mmol/L (98-107); Estimated GFR-MDRD Greater than 90; Globulin 3.3 g/dL (2.4-3.5); Glucose 93 mg/dL (70-105); Potassium 3.8 mmol/L (3.5-5.1); Protein, Total 6.2 g/dL (6.0-8.3); Sodium 135 mmol/L (136-145)
[2017-12-18 13:53] LABS: RBC/HPF None Seen HPF (0-3)
[2017-12-18 13:54] LABS: Bacteria/HPF Rare-Few HPF (None Seen); Hyaline Casts/LPF NONE SEEN LPF (0-3 Hyaline); Squamous Epithelial 0-3 HPF (0-3); WBC/HPF 0-3 HPF (0-3)
--- NOTE | 2017-12-18 14:00 | PDOC.EVN ---
Event Note - Event Note Event Note: Preeclampsia labs negative and BP normotensive in triage. Send home after repeat chlamydia. Will f/u with results OP. <Perico Nascimento - Last Filed: 12/18/17 13:59> - Event Note Event Note: Monitored over 2 hours. Normotensive. No mild or severe range pressure. Remains asymptomatic. Labs WNL. No concern for gHTN or preeclampsia at this time. FHT reactive. Follow up next week at [facility]. ER precautions discussed. Olive <Allyson Maldonado - Last Filed: 12/18/17 16:18>
[2017-12-20 19:35] LABS: Chlamydia by PCR Not Detected (NotDetected)
== END 2017-12-18 14:15 | disposition home or self-care (01) ==
LOC: L&D/OP 11:48
PROVIDERS: ATTEND Family Medicine
DX: O99.89 Other specified diseases and conditions complicating pregnancy, childbirth and the puerperium (principal); R03.0 Elevated blood-pressure reading, without diagnosis of hypertension; O99.283 Endocrine, nutritional and metabolic diseases complicating pregnancy, third trimester; E03.9 Hypothyroidism, unspecified; O99.213 Obesity complicating pregnancy, third trimester; Z3A.33 33 weeks gestation of pregnancy; Z68.41 Body mass index [BMI] 40.0-44.9, adult
CPT/HCPCS: 36415; 80053; 81003; 81015; 82570; 84156; 84443; 84550; 85025; 87491; 99284

== ENCOUNTER 2017-12-24 21:23 | Day surgery (SDC) | payer MEDICAID, OTHER, SELFPAY ==
[2017-12-24 21:55] VITALS: BP 127/74; TEMP 99; BMI 36.6
[2017-12-24] MEDS ORDERED: Ondansetron HCl/PF 4 MG/2 ML Vial IVP SCH (22:00)
--- NOTE | 2017-12-24 22:22 | PDOC.FPROB ---
FMR OB H&P: HPI - History of Present Illness Chief Complaint: dizziness, elevated BP History of Present Illness: This is a 27 yo @ 34.1wks by LMP c/w US @ 16.1wks who is presenting with elevated BPs at work along with dizziness. PMH significant for pre-E and PIH. The patient endorses nausea and vomiting X 1. She states her BP was 162/110 at work. The patient endorses (+) FM, CRUZ, spots in her vision that have resolved, slightly more welling in LE than normal. Denies LOF, vaginal bleeding, abdominal pain, diarrhea, sick contacts. Primary Care Physician: Pravin FMR OB H&P: Current - Care : 4 Para: 3 - OB Labs Blood type: O RH: positive Antibody Screen: negative HIV: negative RPR: negative HepBsAg: negative Rubella: immune Gonorrhea: negative Chlamydia: positive 1 hour gtt: 88 FMR OB H&P: History - Past Medical History PMH: hypothyroidism (no meds in 2 years) - OB History OB History: X 2. 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 No hx of STI or HSV. Never had pap. - Surgical History Sx History: none - Social History Social History: denies alcohol drug or tobacco use FMR OB H&P: Medications - Current Home Medications: Medication Instructions Recorded Confirmed Type Pnv No.95/Ferrous Fum/Folic AC 1 tablet PO DAILY 11/25/13 12/24/17 History [ Tablet] Allergies/Adverse Reactions: Allergies Allergy/AdvReac Type Severity Reaction Status Date / Time No Known Allergies Allergy Verified 12/24/17 21:48 FMR OB H&P: ROS - Review of Systems General: denies: fever/chills Eyes: reports: vision changes (now resolved) Cardiovascular: denies: chest pain, palpitation, edema Respiratory: denies: shortness of breath Gastrointestinal: reports: nausea, vomiting. denies: abdominal pain, cramping, diarrhea, constipation Genitourinary (Female): denies: incontinence, dysuria, vaginal discharge, vaginal pain, vaginal bleeding, contractions, vaginal pressure Neurologic: reports: headache Integumentary: denies: itching FMR OB H&P: Vital Signs - Maternal Vital signs: Vital Signs - First Documented Temp Pulse Resp BP 99.0 F 85 18 127/74 12/24/17 21:47 12/24/17 21:47 12/24/17 21:47 12/24/17 21:47 - Heart Tones Category: category 1 [place] contractions every: none FMR OB H&P: Physical Exam - Physical Exam General: NAD, awake, alert and oriented HEENT: normocephalic and atraumatic, EOMI, grossly normal vision, grossly normal hearing Chest: non-tender to palpation, no lesions Heart: RRR, normal S1/S2, no murmurs/rubs/gallops, no edema General: CTAB, no respiratory distress, good air movement, no wheezing Abdomen: gravid Deviation from normal: mild TTP in RUQ, LUQ, midepigastrium Musculoskeletal: FROM in all four extremities Skin: no rash FMR OB H&P: A/P - Problem List (1) Hx of pre-eclampsia in prior , currently Current Visit: No Status: Acute Code(s): O09.299 - SUPRVSN OF PREG W POOR REPRODCTV OR OBSTET HISTORY, UNSP TRI (2) Hypothyroid Current Visit: No Status: Acute Code(s): E03.9 - HYPOTHYROIDISM, UNSPECIFIED Qualifiers: Hypothyroidism type: unspecified Qualified Code(s): E03.9 - Hypothyroidism , unspecified (3) Intrauterine Current Visit: No Status: Acute Code(s): Z34.90 - ENCNTR FOR SUPRVSN OF NORMAL , UNSP, UNSP TRIMESTER (4) Multiparity Current Visit: No Status: Acute Code(s): Z64.1 - PROBLEMS RELATED TO MULTIPARITY (5) Obesity Current Visit: No Status: Acute Code(s): E66.9 - OBESITY, UNSPECIFIED Disposition: This is a 27 yo @ 34.1 wks by LMP and 16wk sono here for elevated BP. sIUP, with elevated BPs and Nausea/vomiting - will continue to monitor BPs - BP here 120-130s/70s - Will give LR @ 125mls/hr - Will give zofran for nausea Hx of Pre-eclampsia - will order pre-e labs including CBC, CMP, urine pr/cr, uric acid - will monitor VS - Will give tylenol for headache Obesity - aware, weight gain has been monitored - GCT 1 hour normal, HgbA1C normal Hx of hypothyroidism - normal TSH and T4 Case discussed with Dr. Costello Discussion: Date/Time: 12/24/172219 This H&P was discussed with [] and [] who agree with the above documentation and plan. Attending Addendum - Attending Addendum Date/Time: 12/24/17 056 I personally evaluated the patient and discussed the management with Dr. Quevedo I agree with the History, Examination, Assessment and Plan documented above with any addition or exceptions noted below- 27 yo @34.1 weeks presents c/o dizziness, light-headedness with associated nausea and vomiting while at work. Patient states that she went to the nurse and her BP was checked it was high. Told to come for evaluation. States that the lightheadedness has improved. Still having N/V. Denies any abdominal pain. (+) CRUZ. Has had headaches throughout . BP 120-130s/70s Exam repeated by me and agree with resident's findings. A/P: 1) Elevated BP at outside facility- normal here; will check PreE labs. 2) CRUZ/N/V- possible migraine. will start IVF, will give reglan and benadryl. Zofran for emesis. 3) IUP@34.1 weeks- Category 1 FHTs; continue to monitor
[2017-12-24] MEDS ORDERED: Lactated Ringer's 1,000 ML IV SCH (23:00)
[2017-12-24] MEDS: Metoclopramide HCl 10 MG/2 ML VIAL IVP SCH ×2 (23:13→23:43)
[2017-12-24] MEDS: diphenhydrAMINE 50 MG/ML VIAL IVP SCH (23:13)
[2017-12-24 23:30] LABS: #Basophils 0.1 thou/uL (0.0-0.2); #Eosinphils 0.1 thou/uL (0.0-0.7); #Lymphocytes 1.9 thou/uL (1.20-3.40); #Monocytes 0.5 thou/uL (0.11-0.59); #Neutrophils 3.7 thou/uL (1.40-6.50); %Eosinophils 2.2 % (0.0-10.0); %Lymphocytes 29.6 % (21.0-51.0); %Neutrophils 59.2 % (42.0-75.0); Hemoglobin 11.1 g/dL (12.0-16.0); Mean Corpuscular HGB CONC 33.5 g/dL (32.0-36.0); Mean Corpuscular Hemoglobin 26.7 pg (27.0-31.0); Mean Corpuscular Volume 79.8 fL (78.0-98.0); Mean Platelet Volume 8.4 fL (7.4-10.4); Platelet Count 273 thou/uL (130-400); RBC Distribution Width 13.6 % (11.5-14.5); Red Blood Cell (RBC) Count 4.14 mill/uL (4.20-5.40); White Blood Cell (WBC) Count 6.3 thou/uL (4.8-10.8)
[2017-12-24 23:50] LABS: ALT (SGPT) 11 U/L (8-55); AST (SGOT) 17 U/L (5-34); Albumin 3.3 g/dL (3.5-5.0); Alkaline Phosphatase 141 U/L (40-150); Anion Gap 13 mmol/L (10-20); BUN (Urea Nitrogen) 5 mg/dL (7.0-18.7); Bilirubin, Total 0.3 mg/dL (0.2-1.2); Calc. Creatinine Clearance 246 mL/min (70-130); Calcium 8.9 mg/dL (7.8-10.44); Carbon Dioxide 19 mmol/L (22-29); Chloride 107 mmol/L (98-107); Estimated GFR-MDRD Greater than 90; Globulin 3.5 g/dL (2.4-3.5); Glucose 95 mg/dL (70-105); Potassium 4.1 mmol/L (3.5-5.1); Protein, Total 6.8 g/dL (6.0-8.3); Sodium 135 mmol/L (136-145); Uric Acid 3.2 mg/dL (2.6-6.0)
[2017-12-25] MEDS: diphenhydrAMINE 50 MG/ML VIAL IVP SCH (00:13)
[2017-12-25] MEDS: Metoclopramide HCl 10 MG/2 ML VIAL IVP SCH ×2 (00:13→00:42)
[2017-12-25 01:10] LABS: Creatinine, Urine 42.49 mg/dL (47-110); Protein, Urine Random Quant Less than 10 mg/dL (1-14)
== END 2017-12-25 01:30 | disposition home or self-care (01) ==
LOC: L&D/OP 21:23
PROVIDERS: ATTEND Family Medicine
DX: O99.89 Other specified diseases and conditions complicating pregnancy, childbirth and the puerperium (principal); R03.0 Elevated blood-pressure reading, without diagnosis of hypertension; O99.283 Endocrine, nutritional and metabolic diseases complicating pregnancy, third trimester; E03.9 Hypothyroidism, unspecified; R42 Dizziness and giddiness; O99.213 Obesity complicating pregnancy, third trimester; E66.9 Obesity, unspecified; Z64.1 Problems related to multiparity; Z3A.34 34 weeks gestation of pregnancy
CPT/HCPCS: 36415; 80053; 82570; 84156; 84550; 85025; 96360; 96361; 96374; 96375; 96376; 99284; J1200; J2405; J2765

== ENCOUNTER 2018-01-16 17:01 | Day surgery (SDC) | payer MEDICAID, SELFPAY ==
--- NOTE | 2018-01-16 18:54 | PDOC.LDHP ---
Labor and Delivery H&P Chief complaint: abdominal pain HPI: 27 yo @37 3/7 weeks presented c/o lower abdominal pain intermittent and pelvic pressure. (+) FM, Denies LOF, VB. Denies any CRUZ, visual changes. Current gestational age (weeks): 37 Due date: 02/03/18 Dating criteria: last menstrual period Grav: 4 Para: 3 OB History Details: 03/2011 TSVD wt 6-0 M 10/2012 TSVD wt 7-7 F complicated by PIH 11/2013 TSVD wt 8-4 M Current complications: none Abnormal US findings: No Past Medical History: Denies any HTN, DM, cardiac, lung, or kidney disease. H/o thyroid d/o 2013 but stopped medicines in 2015 Current medications: pre-nik vitamins Previous surgical history: none Allergies/Adverse Reactions: Allergies Allergy/AdvReac Type Severity Reaction Status Date / Time No Known Allergies Allergy Verified 12/24/17 21:48 Social history: none - Physical Exam Vital signs reviewed and normal: yes General: NAD Heart: RRR Lungs: CTAB Abdomen: gravid Extremeties: trace edema FHT: category 1 [place] contractions every: irritability - OB Labs Blood type: O RH: positive Antibody Screen: negative HIV: negative RPR: negative HEPSAg: negative 1 hour GCT: negative GBS: negative Rubella: immune - Assessment IUP@ 37 3/7 weeks with abdominal pain and pressure- has only had 1 bottle of water- probable irritability secondary to dehydration. Will have patient po hydrate and recheck in 1 hour.
== END 2018-01-16 19:55 | disposition home or self-care (01) ==
LOC: L&D/OP 17:01
PROVIDERS: ATTEND Family Medicine
DX: O47.1 False labor at or after 37 completed weeks of gestation (principal); Z3A.37 37 weeks gestation of pregnancy
CPT/HCPCS: 99283

== ENCOUNTER 2018-01-27 16:13 | Day surgery (SDC) | payer MEDICAID ==
[2018-01-27 16:48] VITALS: BMI 33.3
--- NOTE | 2018-01-27 16:56 | PDOC.LDHP ---
Labor and Delivery H&P Chief complaint: other Current gestational age (weeks): 39 Due date: 02/03/18 Dating criteria: last menstrual period Grav: 4 Para: 3 - Physical Exam Vital signs reviewed and normal: yes General: NAD Heart: RRR Lungs: CTAB Abdomen: gravid FHT: category 1 (140/moderate/+ accels/no decels) - OB Labs Blood type: O RH: positive Antibody Screen: negative HIV: negative RPR: negative HEPSAg: negative 1 hour GCT: negative GBS: negative Rubella: immune - Plan -: Ms Qiu is a 27yo @39.0 by LMP c/w 16.2wk US presenting for elevated BP IUP - GBS neg - NST reactive gHTN - 3 Elevated pressures in clinic starting at 30wks - Will obtain labs to r/o pre-E including CBC, CMP and Urine protein/Cr - Current BP 128/76 - Continue to monitor pressures Hx of Pre-E in prior - Mult risk factors including: Late to PN, hypothyroidism, obesity - ASA 81mg daily Possible zika exposure - Zika neg on labs Hypothyroidism - TSH wnl 12/27/17 Anemia of - Currently on Iron supplementation Positive for Chlamydia in - Neg JERRELL 12/27 Obesity <Nila Velázquez - Last Filed: 01/27/18 17:25> HPI: Ms Qiu is a 27yo @39.0 by LMP c/w 16.2wk US presenting for elevated BP at [facility] today. BPs today at [facility] were in the 150/90s range. She reports a hx of PreE in a prior . During this starting after 20 weeks, she has had 4 elevated bp's in the 140s/80s range. She endorses a headache today , but denies vision changes, ruq pain. She denies contractions, LOF, vaginal bleeding, vaginal discharge. States that she feels the baby move. She is She had an ultrasound done second trimester that showed a [place] of 52%. OB History Details: First - @ 40wks Second - @ 40 wks Third - @ 38wks, PreE Current complications: gestational hypertension Abnormal US findings: No Past Medical History: Hx Pre E GBS negative +CT, JERRELL neg 12/2017 Hx of hypothyroidism: TSH wnl 12/27/17 s/pFlu and tdap s>d, need to request growth US report Current medications: pre-nik vitamins Previous surgical history: none Social history: none - Physical Exam FHT: category 1, category 2 (variable decels, +accels) <Eli Abreu - Last Filed: 01/27/18 17:34> Allergies/Adverse Reactions: Allergies Allergy/AdvReac Type Severity Reaction Status Date / Time No Known Allergies Allergy Verified 01/27/18 16:48
[2018-01-27] MEDS ORDERED: Acetaminophen 500 MG TAB PO SCH (18:00)
[2018-01-27 18:27] LABS: ALT (SGPT) 9 U/L (8-55); AST (SGOT) 12 U/L (5-34); Alkaline Phosphatase 160 U/L (40-150); Anion Gap 10 mmol/L (10-20); BUN (Urea Nitrogen) 6 mg/dL (7.0-18.7); Bilirubin, Total 0.3 mg/dL (0.2-1.2); Calc. Creatinine Clearance 252 mL/min (70-130); Carbon Dioxide 21 mmol/L (22-29); Chloride 107 mmol/L (98-107); Estimated GFR-MDRD Greater than 90; Globulin 3.3 g/dL (2.4-3.5); Glucose 102 mg/dL (70-105); Potassium 3.9 mmol/L (3.5-5.1); Protein, Total 6.3 g/dL (6.0-8.3); Sodium 134 mmol/L (136-145)
[2018-01-27 18:33] LABS: #Basophils 0.1 thou/uL (0.0-0.2); #Eosinphils 0.2 thou/uL (0.0-0.7); #Lymphocytes 1.7 thou/uL (1.20-3.40); #Monocytes 0.5 thou/uL (0.11-0.59); #Neutrophils 3.9 thou/uL (1.40-6.50); %Basophils 1.1 % (0.0-1.0); %Eosinophils 2.7 % (0.0-10.0); %Lymphocytes 27.3 % (21.0-51.0); %Monocytes 7.6 % (0.0-10.0); %Neutrophils 61.3 % (42.0-75.0); Hemoglobin 10.4 g/dL (12.0-16.0); Mean Corpuscular HGB CONC 33.3 g/dL (32.0-36.0); Mean Corpuscular Hemoglobin 24.9 pg (27.0-31.0); Mean Corpuscular Volume 74.9 fL (78.0-98.0); Mean Platelet Volume 8.8 fL (7.4-10.4); Platelet Count 254 thou/uL (130-400); RBC Distribution Width 15.1 % (11.5-14.5); Red Blood Cell (RBC) Count 4.18 mill/uL (4.20-5.40); White Blood Cell (WBC) Count 6.3 thou/uL (4.8-10.8)
[2018-01-27 18:55] LABS: Anisocytosis SLIGHT = 6-15 cells (100X) (0-5/hpf); Hypochromia SLIGHT = 6-15 cells (100X) (0-5/hpf); MDiff Complete? YES; Microcytosis SLIGHT = 6-15 cells (100X) (0-5/hpf); PLT Morphology Comment Appears Adequate; Polychromasia SLIGHT = 2-3 cells (100X) (0-2/hpf)
[2018-01-27 18:56] LABS: Protein, Urine Random Quant Less than 10 mg/dL (1-14)
--- NOTE | 2018-01-27 19:28 | PDOC.EVN ---
Event Note - Event Note Event Note: CMP, CBC, and urine prot/cr all normal. Patient's headache resolved. No contractions, abdominal pain, changes in vision, edema. monitoring Cat I. Cervical check was 3/thick/high. BP stable, systolic low 130s or below. Plan to discharge home with cytotec induction scheduled for 01/30/2018 @ 20:00. Patient counseled on precautions and warning symptoms in which to return for evaluation.
== END 2018-01-27 19:45 | disposition home or self-care (01) ==
LOC: L&D/OP 16:13
PROVIDERS: ATTEND Obstetrics & Gynecology
DX: O13.3 Gestational [pregnancy-induced] hypertension without significant proteinuria, third trimester (principal); O99.013 Anemia complicating pregnancy, third trimester; O99.283 Endocrine, nutritional and metabolic diseases complicating pregnancy, third trimester; E03.9 Hypothyroidism, unspecified; Z3A.39 39 weeks gestation of pregnancy
CPT/HCPCS: 36415; 80053; 82570; 84156; 85025; 99284

== ENCOUNTER 2018-01-30 20:00 | Inpatient (IN) | payer MEDICAID ==
--- NOTE | 2018-01-30 21:03 | PDOC.FPROB ---
FMR OB H&P: HPI - History of Present Illness Chief Complaint: Scheduled induction History of Present Illness: This is a 27 yo at 39.3 by LMP c/w 16.2 wk us who presents to L&D for a scheduled induction. Pt. denies any vaginal bleeding, LOF, abdominal pain, CP, or SOB. She reports feeling the baby move and feeling some light contractions. FMR OB H&P: Current - Care : 4 Para: 3003 Gestational age: 39.3 Due date: 02/03/18 Dating Criteria: LMP/16.2wk US - OB Labs Blood type: O RH: positive Antibody Screen: negative HIV: negative RPR: negative HepBsAg: negative Rubella: immune Chlamydia: negative (Pos 11/07, JERRELL 12/29) 1 hour gtt: negative GBS: negative H&H: 10.2/30.5 on 01/16/18 FMR OB H&P: History - Past Medical History PMH: Thyroid disease - OB History OB History: Preeclampsia in 2012 FMR OB H&P: Medications - Current Home Medications: Medication Instructions Recorded Confirmed Type Pnv No.95/Ferrous Fum/Folic AC 1 tablet PO DAILY 11/25/13 01/27/18 History [ Tablet] Acetaminophen [Tylenol Extra 1,000 mg PO NOW tab 01/27/18 Rx Strength] Allergies/Adverse Reactions: Allergies Allergy/AdvReac Type Severity Reaction Status Date / Time No Known Allergies Allergy Verified 01/27/18 16:48 FMR OB H&P: ROS - Review of Systems General: denies: fever/chills, weight/appetite/sleep changes Eyes: denies: eye pain, vision changes ENT: denies: nasal congestion, rhinorrhea Cardiovascular: denies: chest pain, palpitation Gastrointestinal: denies: abdominal pain, indigestion, nausea, vomiting Genitourinary (Female): denies: incontinence, dysuria Musculoskeletal: denies: pain, stiffness Neurologic: denies: numbness, syncope Integumentary: denies: itching, rash Breast: denies: lumps, bumps Psychological: denies: depression, anxiety FMR OB H&P: Vital Signs - Maternal Vital signs: BP 137/70, HR 78, RR 16 - Heart Tones Baseline: 140 Variability: moderate Acceleration: present Deceleration: absent Category: category 1 [place] contractions every: No contractions FMR OB H&P: Physical Exam - Physical Exam General: NAD, awake, alert and oriented HEENT: normocephalic and atraumatic, EOMI, MMM Neck: FROM, no JVD Chest: non-tender to palpation, no lesions Heart: RRR, normal S1/S2, no murmurs/rubs/gallops General: CTAB, no respiratory distress, good air movement Abdomen: soft, gravid, non-tender, bowel sound present Musculoskeletal: pulses present, FROM in all four extremities Neurological: cranial nerves II through XII intact Psychiatric: intact recent and remote memory, good judgement and insight, normal mood and affect - Pelvic Exam SVE: 0/-3 FMR OB H&P: A/P - Problem List (1) Elective induction of labor planned Current Visit: Yes Status: Acute Code(s): [id number] - (2) Term Current Visit: Yes Status: Acute Code(s): Z34.80 - ENCOUNTER FOR SUPRVSN OF NORMAL , UNSP TRIMESTER (3) Gestational hypertension Current Visit: No Status: Acute Code(s): O13.9 - GESTATIONAL HTN W/O SIGNIFICANT PROTEINURIA, UNSP TRIMESTER Disposition: This is a 27 yo at 39.3 wk by LMP/16.2wk US Scheduled induction of term -Admit to L&D, initial check was 3 at 2130. FHTs are 140, cat 1. Pt. has no contractions at this time. We are starting cytotec induction and will recheck in 3-4 hours. Gestational HTN -Aware, no need for management at this time. Discussion: Date/Time: 01/30/182099 This H&P was discussed with [] and [] who agree with the above documentation and plan.
[2018-01-30] MEDS ORDERED: Acetaminophen 500 MG TAB PO PRN (21:26)
[2018-01-30] MEDS ORDERED: Lidocaine 1% (PF) 30 ML VIAL SC PRN (21:26)
[2018-01-30] MEDS ORDERED: NS / Oxytocin 40 units/1000ml 1,000 ML IV PRN (21:26)
[2018-01-30] MEDS ORDERED: Ondansetron PF 4 MG/2 ML Vial IVP PRN (21:26)
[2018-01-30] MEDS ORDERED: Promethazine HCl 25 MG/ML VIAL IM PRN (21:26)
[2018-01-30 21:47] LABS: Hemoglobin 10.8 g/dL (12.0-16.0); Mean Corpuscular HGB CONC 32.3 g/dL (32.0-36.0); Mean Corpuscular Hemoglobin 24.1 pg (27.0-31.0); Mean Corpuscular Volume 74.5 fL (78.0-98.0); Mean Platelet Volume 9.2 fL (7.4-10.4); Platelet Count 274 thou/uL (130-400); RBC Distribution Width 15.2 % (11.5-14.5); White Blood Cell (WBC) Count 6.3 thou/uL (4.8-10.8)
[2018-01-30] MEDS ORDERED: Misoprostol 100 MCG TAB VAG SCH (22:00)
[2018-01-30] MEDS: Lactated Ringer's 1,000 ML IV SCH (22:12)
[2018-01-30 22:29] LABS: Syphilis Antibody Nonreactive (Nonreactive); Syphilis Antibody Index 0.08 S/CO (<1.00 Non-Reactive)
[2018-01-30 22:37] VITALS: BMI 42.5
[2018-01-30 23:08] LABS: HBSAg Index 0.24 S/CO (0-0.99); Hep B Surf Ag Non-Reactive S/CO (NonReactive)
--- NOTE | 2018-01-31 01:01 | PDOC.LDPN ---
Labor & Delivery Progress Note - Subjective Subjective: comfortable, no concerns - Objective Vital signs reviewed and normal: yes General: NAD, resting Uterine fundus: non tender SVE: 80/-3 Dilation: 1 Station: -3 FHT: category 1, variability present (moderate, base line 140) [place] contractions every: 2-3 minutes - Assessment (1) Elective induction of labor planned Code(s): [id number] - Current Visit: Yes Status: Acute (2) Term Code(s): Z34.80 - ENCOUNTER FOR SUPRVSN OF NORMAL , UNSP TRIMESTER Current Visit: Yes Status: Acute (3) Gestational hypertension Code(s): O13.9 - GESTATIONAL HTN W/O SIGNIFICANT PROTEINURIA, UNSP TRIMESTER Current Visit: No Status: Acute Plan: continue plan of care -: This is a 27 yo at 39.3 wk by LMP/16.2wk US Scheduled induction of term -Cervical check was /-3 at this time. FHTs are 140, cat 1. Pt. contractions every 2-3 minutes. We will recheck in 3-4 hours and consider pitocin augmentation when cervix is more favorable. Gestational HTN -Aware, no need for management at this time.
[2018-01-31] MEDS ORDERED: Misoprostol 100 MCG TAB VAG SCH (03:45)
[2018-01-31] MEDS: Lactated Ringer's 1,000 ML IV SCH ×2 (04:56→12:22)
[2018-01-31] MEDS ORDERED: Butorphanol Tartrate 1 MG/ML VIAL SLOW IVP SCH (05:30)
--- NOTE | 2018-01-31 07:41 | PDOC.LDPN ---
Labor & Delivery Progress Note - Subjective Subjective: painful contractions - Objective Abnormal vital signs: Last 3 BP 160-70s/70s General: resting SVE: 1/50%/-3/post/soft [place] contractions every: q2-3 min -: 1) IUP @ 39 3/7 weeks admitted for induction- received cytotec x 2 with minimal change. Unable to place additional cytotec due to frequency of contractions. Continue to monitor for change. 2) Elevated BP- last 3 readings 163/77, 177/89, 176/94- has h/o intermittent elevated BP through third trimester; negative lab work for pre-eclampsia. Will recheck labs today. Orders for labetolol for SBP>160 or DBP>105 entered. May need to start magnesium. Patient denies any symptoms currently.
[2018-01-31] MEDS ORDERED: Labetalol HCl 100 MG/20 ML VIAL ONE (08:03)
--- NOTE | 2018-01-31 08:04 | PDOC.LDPN ---
Labor & Delivery Progress Note - Subjective Subjective: painful contractions, vaginal pressure - Objective Vital signs reviewed and normal: yes General: breathing through contractions Uterine fundus: non tender SVE: /-3 Dilation: 1 Station: -3 FHT: category 1, variability present (moderate) - Assessment (1) Elective induction of labor planned Code(s): [id number] - Current Visit: Yes Status: Acute (2) Term Code(s): Z34.80 - ENCOUNTER FOR SUPRVSN OF NORMAL , UNSP TRIMESTER Current Visit: Yes Status: Acute (3) Gestational hypertension Code(s): O13.9 - GESTATIONAL HTN W/O SIGNIFICANT PROTEINURIA, UNSP TRIMESTER Current Visit: No Status: Acute -: This is a 27 yo at 39.3 wk by LMP/16.2wk US Scheduled induction of term -Cervical check was unchanged, at this time. FHTs are 140, cat 1. Pt. received cytotec at 0500. We will recheck in 3-4 hours and consider pitocin augmentation when cervix is more favorable. Pt. has received 1 dose of 1 mg of stadol for pain. Gestational HTN -Aware, no need for management at this time.
[2018-01-31] MEDS: Labetalol HCl 100 MG/20 ML VIAL SLOW IVP SCH ×3 (08:08→09:35)
[2018-01-31 09:15] LABS: Creatinine, Urine 65.39 mg/dL (47-110); Protein, Urine Random Quant Less than 10 mg/dL (1-14)
[2018-01-31] MEDS ORDERED: Magnesium Sulfate 20 GM/WATER 500 ML BAG IVPB SCH (09:30)
[2018-01-31] MEDS ORDERED: Calcium Gluc 4.6 MEQ/10 ML (100 MG/ML) SLOW IVP PRN (09:30)
--- NOTE | 2018-01-31 09:32 | PDOC.LDPN ---
Labor & Delivery Progress Note - Subjective Subjective: painful contractions - Objective Abnormal vital signs: Elevated BP: 174/85 General: breathing through contractions Uterine fundus: non tender Dilation: 2 Effacement: 75% Station: -3 FHT: category 1 [place] contractions every: 140/moderate/+ accels/no decels AROM: clear fluid - Assessment (1) Term Code(s): Z34.80 - ENCOUNTER FOR SUPRVSN OF NORMAL , UNSP TRIMESTER Current Visit: Yes Status: Acute Plan: continue plan of care, labor augmentation -: 27yo @39.3 wk by LMP/16.2wk US sIUP, scheduled induction for gHTN - Cervical check /-3 @1015 - FHTs are 140, cat 1 - Pt received cytotec x2, currently on Pit. - Currently receiving Stadol for pain, will place epidural for pain and BP control - Continue serial cervical checks gHTN - BPs elevated, currently 174/85 - No response to labetalol - Starting Hydralazine PRN for SBP >160 - Started Mg and Mg protocol <Nila Velázquez - Last Filed: 01/31/18 10:22> - Assessment (1) Intrauterine Code(s): Z34.90 - ENCNTR FOR SUPRVSN OF NORMAL , UNSP, UNSP TRIMESTER Current Visit: No Status: Acute <Jay Shipley - Last Filed: 01/31/18 14:34> Attending Addendum - Attending Addendum Date/Time: 01/31/18 8929 I personally evaluated the patient and discussed the management with Dr. Velázquez Patient requests epidural - will likely help BP. <Jay Shipley - Last Filed: 01/31/18 14:34>
[2018-01-31] MEDS ORDERED: hydrALAZINE 20 MG/ML VIAL SLOW IVP PRN (10:17)
[2018-01-31] MEDS ORDERED: hydrALAZINE 20 MG/ML VIAL ONE (10:20)
[2018-01-31] MEDS ORDERED: Fentanyl 4 mcg/Bup 0.1% Cadd 100 ML ONE ×2 (10:38→10:39)
[2018-01-31] MEDS: Magnesium Sulfate 20 gm/500 ml 20 GM/500 ML BAG IVPB SCH ×2 (10:43→18:31)
[2018-01-31] MEDS ORDERED: Eucerin (Mineral Oil/Petrolatum,White) 30 gm Jar TOP PRN (10:58)
[2018-01-31] MEDS ORDERED: Promethazine HCl 25 MG/ML VIAL IM PRN (10:58)
[2018-01-31] MEDS ORDERED: diphenhydrAMINE 50 MG/ML VIAL IVP PRN (10:58)
[2018-01-31] MEDS ORDERED: ePHEDrine/0.9% NaCl/PF SYRINGE 50 mg/10 ml SLOW IVP PRN (10:58)
[2018-01-31] MEDS ORDERED: Acetaminophen 325 MG TAB PO PRN (10:58)
[2018-01-31] MEDS ORDERED: Naloxone HCl 0.4 mg/ml Vial IVP PRN ×2 (10:58)
[2018-01-31] MEDS ORDERED: Ondansetron PF 4 MG/2 ML Vial IVP PRN (10:58)
[2018-01-31] MEDS ORDERED: Lactated Ringer's 500 ML IV PRN (10:58)
[2018-01-31] MEDS ORDERED: Fentanyl 4 mcg/Bupivacaine 0.1% Cassette 100 ML EPIDURAL SCH (11:00)
[2018-01-31] MEDS ORDERED: Communication Order-Pharmacy FS SCH (11:00)
--- NOTE | 2018-01-31 12:51 | PDOC.LDPN ---
Labor & Delivery Progress Note - Objective Abnormal vital signs: BP 140/80s General: resting SVE: 4/50%/-2 FHT: category 2 [place] contractions every: q2-6 Other exam findings: FHTs: 130s/minimal variability/(+) early decels/ accels 10x10 IUPC placed: yes FSE placed: yes Resuscitative measures: maternal position change -: 1) IUP @39 4/7 weeks - s/p AROM clear fluid; now making cervical change. Progressing on own currently- no pitocin currently. Recheck in 2 hours if no change will start pitocin. Had few late decelerations resolved with position change. 2) Gestational HTN with severe range BP- labs negative for Pre-E; continue magnesium; good urine output
[2018-01-31] MEDS ORDERED: NS w/ Oxytocin 10 units 500 ML ONE (12:57)
[2018-01-31] MEDS: NS w/ Oxytocin 10 units 500 ML IV SCH (13:05)
[2018-01-31 13:08] LABS: ALT (SGPT) 10 U/L (8-55); AST (SGOT) 13 U/L (5-34); Albumin 3.2 g/dL (3.5-5.0); Alkaline Phosphatase 182 U/L (40-150); Anion Gap 13 mmol/L (10-20); BUN (Urea Nitrogen) 8 mg/dL (7.0-18.7); Bilirubin, Total 0.3 mg/dL (0.2-1.2); Calc. Creatinine Clearance 220 mL/min (70-130); Calcium 8.8 mg/dL (7.8-10.44); Carbon Dioxide 21 mmol/L (22-29); Chloride 106 mmol/L (98-107); Estimated GFR-MDRD Greater than 90; Globulin 3.3 g/dL (2.4-3.5); Glucose 96 mg/dL (70-105); Protein, Total 6.5 g/dL (6.0-8.3); Sodium 136 mmol/L (136-145)
--- NOTE | 2018-01-31 14:04 | PDOC.OBLPN ---
FMR OB Labor PN: Subj - Interval History Hospital Day: 1 FMR OB Labor PN: Obj - Maternal Vital signs: BP: [] HR: [] RR: [] Tmax: [] Pox: []% on [] Wt: [] - Procedures AROM: clear fluid IUPC placed: yes FSE placed: yes Resuscitative measures: maternal IV fluids, maternal position change FMR OB Labor PN: Data - Labs Lab results: Laboratory Results - last 24 hr 01/30/18 01/30/18 01/30/18 21:00 21:00 21:00 WBC 6.3 RBC 4.50 Hgb 10.8 L Hct 33.6 L MCV 74.5 L MCH 24.1 L MCHC 32.3 RDW 15.2 H Plt Count 274 MPV 9.2 Sodium Potassium Chloride Carbon Dioxide Anion Gap BUN Creatinine Estimated GFR (MDRD) Glucose Calcium Total Bilirubin AST ALT Alkaline Phosphatase Serum Total Protein Albumin Globulin Albumin/Globulin Ratio U Random Total Protein Urine Creatinine Syphilis IgG/IgM Ab Nonreactive Hep Bs Antigen Non-Reactive Blood Type Antibody Screen 01/30/18 01/31/18 01/31/18 21:10 07:56 10:35 WBC RBC Hgb Hct MCV MCH MCHC RDW Plt Count MPV Sodium 136 Potassium 4.0 Chloride 106 Carbon Dioxide 21 L Anion Gap 13 BUN 8 Creatinine 0.63 Estimated GFR (MDRD) Greater than 90 Glucose 96 Calcium 8.8 Total Bilirubin 0.3 AST 13 ALT 10 Alkaline Phosphatase 182 H Serum Total Protein 6.5 Albumin 3.2 L Globulin 3.3 Albumin/Globulin Ratio 1.0 L U Random Total Protein Less than 10 Urine Creatinine 65.39 Syphilis IgG/IgM Ab Hep Bs Antigen Blood Type O POSITIVE Antibody Screen NEGATIVE FMR OB Labor PN: A/P - Problem List (1) Intrauterine Current Visit: No Status: Acute Code(s): Z34.90 - ENCNTR FOR SUPRVSN OF NORMAL , UNSP, UNSP TRIMESTER Discussion: Date/Time: 01/31/18 1402 ON Mag, BP's reasonable AROM large amount clear fluid Patient is servando well, comfortable with epidural On low dose pit - brief non-reassuring FHT with lates, responded to D/C pit and positional changes. Cat I now. Will re-start pit and follow closely. Dr. Costello aware.
[2018-01-31] MEDS ORDERED: Preparation H Ointment 28 GM TUBE PR PRN (15:42)
[2018-01-31] MEDS ORDERED: Acetaminophen/Codeine 30-300mg Tablet PO PRN (15:42)
[2018-01-31] MEDS ORDERED: Lanolin Ointment 7 GM TUBE TOP PRN (15:42)
[2018-01-31] MEDS ORDERED: Benzocaine/Menthol 20-0.5% 60 ML CAN TOP PRN (15:42)
[2018-01-31] MEDS ORDERED: Milk Of Magnesia 30 ML UDCUP PO PRN (15:42)
[2018-01-31] MEDS ORDERED: Bisacodyl 10 MG SUPP PR PRN (15:42)
[2018-01-31] MEDS ORDERED: HYDROcodone/Acetaminophen 5/325 mg Tablet PO PRN (15:42)
--- NOTE | 2018-01-31 15:42 | PDOC.OPDEL ---
OB Operative/Delivery Note Delivery Dr/Surgeon: Eber/Pravin Pre-Delivery Diagnosis: medically indicated induction (severe gestational hypertension) Procedure/Post Delivery Dx: spontaneous vaginal delivery Weeks gestation: 39 Anesthesia: epidural - Findings A Sex: male - 1 min: 8 - 5 min: 9 - Additional Findings/Plan Placenta delivered: spontaneous Repaired Obstetrical Laceration: other (Right periurethral closed with 3 interrupted sutures of 3-0 vicryl and 1st degree perineal repaired with a figure of suture of 3-0 vicryl.) Compilations/Other Findings: 27 you @ 39 4/7 weeks admitted for induction secondary to gestational hypertension. Patient received cytotec x 2, AROM clear fluid was accomplished at 10AM, patient then progressed to complete and delivered a viable male over an intact perineum. Apgars 8/9. Placenta delivered spontaneously, [place] and intact. 3 V cord. Right periurethral repaired with 3-0 vicryl using interrupted sutures. Small 1st degree perineal repaired with figure of 8 suture. Good hemostasis. Resident- Daniels. Galvez was present and assisted in the delivery of the infant. Patient to remain in LICU due to severe gestationla hypertension. Post delivery plan: recovery in LICU
--- NOTE | 2018-01-31 18:57 | PDOC.EVN ---
Event Note - Event Note Event Note: Pt. denies dyspnea, chest pain, weakness, nausea, and vomiting. She states that her pain is well controlled. Urine output is 350 ml in the last hour, BP was 158/77 HR 83, DTRs were 2/4 in all four extremities. Mag level was 4.2 at 1631 We will continue mag and monitor BP. Pt has PRN hydralazine with parameters of SBP >160 Plan was discussed with Dr. Jacobson and Dr. Taylor and they agree with the treatment and plan
--- NOTE | 2018-01-31 21:12 | PDOC.EVN ---
Event Note - Event Note Event Note: Pt. denies dyspnea, chest pain, weakness, nausea, and vomiting. She states that her pain is well controlled. Urine output is 325 ml in the last hour, BP was 152/74 HR 77, DTRs were 2/4 in all four extremities. Mag level was 4.2 at 1631 We will continue mag and monitor BP. Pt has PRN hydralazine with parameters of SBP >160 Plan was discussed with Dr. Jacobson and he agrees with the treatment and plan
--- NOTE | 2018-02-01 00:30 | PDOC.EVN ---
Event Note - Event Note Event Note: Pt. denies dyspnea, chest pain, weakness, nausea, and vomiting. She states that her pain is well controlled. Urine output is 350 ml in the last hour, BP was 140/73 HR 68, DTRs were 2/4 in all four extremities. Mag level was 4.2 at 1631 We will continue mag and monitor BP. Pt has PRN hydralazine with parameters of SBP >160 Plan was discussed with Dr. Jacobson and he agrees with the treatment and plan
[2018-02-01] MEDS: Ibuprofen 800 MG TAB PO SCH ×4 (01:45→21:55)
[2018-02-01] MEDS: Magnesium Sulfate 20 gm/500 ml 20 GM/500 ML BAG IVPB SCH (04:00)
[2018-02-01 05:50] LABS: Mean Corpuscular Hemoglobin 24.5 pg (27.0-31.0); Mean Corpuscular Volume 76.3 fL (78.0-98.0); Mean Platelet Volume 9.2 fL (7.4-10.4); Platelet Count 232 thou/uL (130-400); RBC Distribution Width 15.2 % (11.5-14.5); Red Blood Cell (RBC) Count 4.08 mill/uL (4.20-5.40); White Blood Cell (WBC) Count 7.1 thou/uL (4.8-10.8)
[2018-02-01] MEDS: Lactated Ringer's 1,000 ML IV SCH ×4 (06:15→21:55)
--- NOTE | 2018-02-01 06:50 | PDOC.PP ---
Post Progress Note Post Day #: 1 Subjective: One dose of Tylenol 3 overnight for incision pain in addition to schedule Ibuprofen. Denies headache, blurry vision, flashing lights in vision, abdominal pain, edema or shortness of breath. She is bottle feeding. No questions or concerns this morning. PO intake tolerated: yes Flatus: no Ambulation: no Weight Weight 102.058 kg - Physical Examination General: NAD Cardiovascular: no m/r/g, RRR Respiratory: clear to auscultation bilaterally, non-labored breathing Abdominal: + bowel sounds, lochia, appropriately TTP Deviation from normal: no able to elicit patellar or brachioradialis reflex bilaterally Psychiatric: A&Ox3, normal affect Result Diagrams: 02/01/18 05:25 01/31/18 10:35 Additional Labs: Post Labs Blood Type O POSITIVE 01/30/18 21:10 Hep Bs Antigen Non-Reactive S/CO (NonReactive) 01/30/18 21:00 (1) Normal course Code(s): Z39.2 - ENCOUNTER FOR ROUTINE FOLLOW-UP Status: Acute - Assessment/Plan sIUP s/p delivery - Post delivery H&H . - Mother is bottle feeding - Continue routine care gHTN with severe range pressures - Started on Mg at 1030 on 01/31 - No DTR on exam, will check Mg level and turn down Mg to 1 until level results - Continue monitoring for signs and symptoms of pre-E and Mg toxicity <Nila Velázquez - Last Filed: 02/01/18 08:41> Weight Weight 102.058 kg Result Diagrams: 02/01/18 05:25 01/31/18 10:35 Additional Labs: Post Labs Blood Type O POSITIVE 01/30/18 21:10 Hep Bs Antigen Non-Reactive S/CO (NonReactive) 01/30/18 21:00 <Odilia Costello - Last Filed: 02/01/18 10:02> Attending Addendum - Attending Addendum Date/Time: 02/01/18 1000 I personally evaluated the patient and discussed the management with Dr. Velázquez I agree with the History, Examination, Assessment and Plan documented above with any addition or exceptions noted below- Patient without complaints. Denies any CRUZ, visual changes. Afebrile VSS. A/P: 1) PPD#1 s/p - continue routine care. 2) Severe gestational HTN- good urine output and BP improved; continue magnesium till this afternoon and then transfer to . <Odilia Costello - Last Filed: 02/01/18 10:02>
[2018-02-01] MEDS ORDERED: Adacel (T-DAP) 0.5 ML VIAL IM ONE (09:00)
--- NOTE | 2018-02-01 09:08 | PDOC.EVN ---
Event Note - Event Note Event Note: Pt. denies chest pain, trouble breathing, weakness, nausea, or vomiting. Urine was 350mL in the last hour, BP was 128/65 HR 65 DTRs were 2/4 in all four extremities We will continue monitoring vitals
--- NOTE | 2018-02-01 10:38 | PDOC.EVN ---
Event Note - Event Note Event Note: Pt denies changes in vision, chest pain, SOB, CRUZ, weakness, nausea, or vomiting. Exam: Urine output: 75mL in the last hour, BP: 128/59. Has had pressures as high as 180/79 resolved without hydralazine. HR 70 DTRs: Not able to ellicit patellar or brachioradialis reflex Continue Mg at 1, decreased at last check due to decreased DTRs. Mg level was 4.5. Discussed with Dr Costello, will discontinue Mg and transfer to at 1500 Continue IVF at 100ml/hr We will continue monitoring vitals, urine output and symptoms
[2018-02-01] MEDS: Prenatal Vitamin 1 TAB PO SCH (11:10)
[2018-02-01] MEDS: Docusate Calcium (SURFAK) 240 MG CAP PO SCH ×3 (11:10→21:55)
--- NOTE | 2018-02-01 12:13 | PDOC.EVN ---
Event Note - Event Note Event Note: Pt denies any pre-E symptoms. Per nurse, BPs have been 119-134/60s. We will continue to use hydralazine PRN and monitor BPs. We will continue to monitor urine output. Pt about to eat lunch. Monitoring vitals. Patient being transferred to PP.
[2018-02-01] MEDS: Ferrous Sulfate 325 MG TAB PO SCH ×3 (15:08→17:19)
--- NOTE | 2018-02-01 15:46 | PDOC.EVN ---
Event Note - Event Note Event Note: Patient evaluated around 1430. Patient resting comfortably in bed. Has no complaints or concerns. No pre-E symptoms Exam: adequate 60ml/hr, BP 150/63 - hydralazine PRN. HR 70. DTR: +1reflexes patellar and brachioradialis Mg continuing at 1 at that itme. To be d/c at 1500. Will continue to monitor vitals, urine output and symptoms. Move to PP after d/c of Mg
[2018-02-01] MEDS: NS w/ Oxytocin 10 units 500 ML IV SCH (17:17)
[2018-02-02] MEDS: Lactated Ringer's 1,000 ML IV SCH ×2 (05:35→09:10)
[2018-02-02] MEDS: Ibuprofen 800 MG TAB PO SCH ×2 (05:38→14:45)
--- NOTE | 2018-02-02 06:53 | PDOC.PP ---
Post Progress Note Post Day #: 2 Subjective: Pain is well controlled. Per nursing expected amount of lochia. She is ambulating, tolerating PO. PO intake tolerated: yes Flatus: yes Ambulation: yes Vital Signs (12 hours) Temp Pulse Resp BP Pulse Ox 02/02/18 04:00 97.7 F 68 18 123/70 02/02/18 00:15 98.2 F 58 L 18 104/63 02/01/18 19:30 98.4 F 73 18 132/62 02/01/18 19:00 98.4 F 73 18 132/62 100 Weight Weight 102.058 kg - Physical Examination General: NAD Cardiovascular: no m/r/g, RRR Respiratory: clear to auscultation bilaterally, non-labored breathing Abdominal: + bowel sounds, lochia, appropriately TTP Neurological: no gross focal deficits Psychiatric: A&Ox3, normal affect Result Diagrams: 02/01/18 05:25 01/31/18 10:35 Additional Labs: Post Labs Blood Type O POSITIVE 01/30/18 21:10 Hep Bs Antigen Non-Reactive S/CO (NonReactive) 01/30/18 21:00 (1) Normal course Code(s): Z39.2 - ENCOUNTER FOR ROUTINE FOLLOW-UP Status: Acute - Assessment/Plan sIUP s/p delivery - PPD #2 - Post delivery H&H 10.1 - Mother is bottle feeding - Meeting pp milestones - Continue routine care gHTN with severe range pressures - BP 123/70 - Received Mg 24hr pp, stopped yesterday afternoon. - Continue to monitor for signs of PreE - Continue hydralazine PRN for SBP >160 Dispo: home today if BPs remain controlled. Will follow up in clinic in next 1- 2 days for BP check <Nila Velázquez - Last Filed: 02/02/18 11:12> Vital Signs (12 hours) Temp Pulse Resp BP BP Pulse Ox 02/02/18 09:08 98.2 F 67 18 128/70 95 02/02/18 04:00 97.7 F 68 18 123/70 02/02/18 00:15 98.2 F 58 L 18 104/63 Weight Weight 102.058 kg Result Diagrams: 02/01/18 05:25 01/31/18 10:35 Additional Labs: Post Labs Blood Type O POSITIVE 01/30/18 21:10 Hep Bs Antigen Non-Reactive S/CO (NonReactive) 01/30/18 21:00 <Jamila Taylor - Last Filed: 02/02/18 11:33> Attending Addendum - Attending Addendum Date/Time: 02/02/18 1327 I personally evaluated the patient and discussed the management with Dr. Velázquez I agree with the History, Examination, Assessment and Plan documented above with any addition or exceptions noted below. Stable PPD # 2 s/p complicated by severe gestational HTN. Lochia is mild. Ambulating without dizziness. Eating/drinking normally. No issues with urination. She had 1 severe range blood pressure yesterday and received one dose of hydralazine. Since that time her pressures have been normotensive. She denies CRUZ , visual changes or RUQ pain. Pt meeting appropriate milestones. Will continue to monitor today and if the BP remains controlled she can d/c to home later today. Will make followup BP check at [facility] in 1-2 days. Strict return precautions reviewed. <Jamila Taylor - Last Filed: 02/02/18 11:33>
[2018-02-02] MEDS: Ferrous Sulfate 325 MG TAB PO SCH ×2 (08:06→19:06)
[2018-02-02 09:10] VITALS: TEMP 98.2
[2018-02-02] MEDS: Prenatal Vitamin 1 TAB PO SCH (09:10)
[2018-02-02] MEDS: NS w/ Oxytocin 10 units 500 ML IV SCH (09:10)
[2018-02-02] MEDS: Docusate Calcium (SURFAK) 240 MG CAP PO SCH (09:10)
[2018-02-02 15:34] VITALS: BP 138/72
== END 2018-02-02 19:06 | disposition home or self-care (01) | DRG 807 ==
LOC: L&D 20:11 → 3SW 02-01 16:22
PROVIDERS: ADMIT Family Medicine; ATTEND Family Medicine
PROC: 10E0XZZ Delivery of Products of Conception, External Approach (ICD-10-PCS; principal; 2018-01-31)
PROC: 10907ZC Drainage of Amniotic Fluid, Therapeutic from Products of Conception, Via Natural or Artificial Opening (ICD-10-PCS; 2018-01-31)
PROC: 0UQMXZZ Repair Vulva, External Approach (ICD-10-PCS; 2018-01-31)
PROC: 3E033VJ Introduction of Other Hormone into Peripheral Vein, Percutaneous Approach (ICD-10-PCS; 2018-01-31)
DX: O24.420 Gestational diabetes mellitus in childbirth, diet controlled (principal); Z37.0 Single live birth; Z3A.39 39 weeks gestation of pregnancy; O71.82 Other specified trauma to perineum and vulva
CPT/HCPCS: 36415; 51701; 51702; 76815; 80053; 82570; 83735; 84156; 85027; 86780; 86850; 86900; 86901; 87340; J0360; J0595; J2405; J3475

== ENCOUNTER 2021-11-16 19:26 | Emergency (ER) | payer MEDICAID, SELFPAY ==
[2021-11-16 20:18] LABS: Bilirubin Negative (Negative); Blood, Urine Negative (Negative); Clarity Clear (Clear); Glucose, Urine (Dipstick) Normal (Negative); Ketone, Urine Negative (Negative); Leukocyte Negative Leu/uL (Negative); Nitrite Negative (Negative); Protein, Urine (Dipstick) Negative (Neg-Trace); Specific Gravity, Urine 1.005 (1.002-1.036); Urobilinogen Normal mg/dL (Less than 2)
== END 2021-11-16 21:37 | disposition home or self-care (01) ==
LOC: ERS 19:26
DX: O99.891 Other specified diseases and conditions complicating pregnancy (principal); R10.9 Unspecified abdominal pain; O99.212 Obesity complicating pregnancy, second trimester; O99.282 Endocrine, nutritional and metabolic diseases complicating pregnancy, second trimester; E03.9 Hypothyroidism, unspecified; Z3A.25 25 weeks gestation of pregnancy
CPT/HCPCS: 81003; 87086; 99284

== ENCOUNTER 2022-09-23 21:04 | Observation (INO) | payer MEDICAID, SELFPAY ==
[2022-09-23 21:22] LABS: #Basophils 0.1 thou/uL (0.0-0.2); #Eosinphils 0.4 thou/uL (0.0-0.7); #Monocytes 0.4 thou/uL (0.11-0.59); #Neutrophils 3.9 thou/uL (1.40-6.50); %Lymphocytes 29.6 % (21.0-51.0); %Neutrophils 57.3 % (42.0-75.0); Hemoglobin 6.7 g/dL (12.0-16.0); Mean Corpuscular Hemoglobin 17.9 pg (27.0-31.0); Mean Corpuscular Volume 63.7 fl (78.0-98.0); Mean Platelet Volume 9.2 fL (7.4-10.4); Platelet Count 368 10x3/uL (130-400); Red Blood Cell (RBC) Count 3.75 mill/uL (4.20-5.40); White Blood Cell (WBC) Count 6.9 10x3/uL (4.8-10.8)
[2022-09-23 21:42] LABS: ALT (SGPT) 12 U/L (8-55); AST (SGOT) 13 U/L (5-34); Albumin 4.3 g/dL (3.5-5.0); Alkaline Phosphatase 56 U/L (40-110); Anion Gap 10 mmol/L (10-20); BUN (Urea Nitrogen) 11 mg/dL (7.0-18.7); Bilirubin, Total 0.3 mg/dL (0.2-1.2); Calc. Creatinine Clearance 0 mL/min (70-130); Calcium 9.3 mg/dL (7.8-10.44); Carbon Dioxide 25 mmol/L (22-29); Chloride 104 mmol/L (98-107); Estimated GFR 107; Globulin 3.3 g/dL (2.4-3.5); Glucose 117 mg/dL (70-105); Lipase 63 U/L (8-78); Potassium 3.9 mmol/L (3.5-5.1); Protein, Total 7.6 g/dL (6.0-8.3); Sodium 135 mmol/L (136-145)
[2022-09-23 21:53] LABS: Anisocytosis SLIGHT = 6-15 cells HPF (0-5); CellaVision Operator ID lab.abc; Hypochromia SLIGHT = 6-15 cells HPF (0-5); Microcytosis MODERATE=15-30 cells HPF (0-5); Platelet Adequacy Comment Platelets Normal; Polychromasia SLIGHT = 2-3 cells HPF (0-2)
[2022-09-24] MEDS ORDERED: Ketorolac Tromethamine 30 MG/ML VIAL ONE ×2 (01:18→13:44)
[2022-09-24] MEDS ORDERED: Ondansetron PF 4 MG/2 ML Vial ONE ×2 (01:18→13:44)
[2022-09-24 01:54] LABS: Bilirubin Negative (Negative); Blood, Urine 3+ (Negative); CAUTI Indications for Culture Pelvic or flank pain; Clarity Extra Turbid (Clear); Glucose, Urine (Dipstick) Normal (Negative); Ketone, Urine Negative (Negative); Leukocyte 500 Leu/uL (Negative); Nitrite Negative (Negative); Protein, Urine (Dipstick) 100 mg/dL (Neg-Trace); RBC/HPF Greater than 50 HPF (0-3); Specific Gravity, Urine 1.015 (1.002-1.036); Squamous Epithelial 21-50 HPF (0-3); Urobilinogen Normal mg/dL (Less than 2); WBC/HPF 21-50 HPF (0-3); pH, Urine 7.5 (5.0-9.0)
[2022-09-24 01:56] LABS: Bacteria/HPF Rare-Few HPF (None Seen)
[2022-09-24 01:57] LABS: Pregnancy Test - Urine (BHCG) Negative (Negative); Pregu Control Background? CLEAR/WHITE (CLR/WHITE); Pregu Control Bar Appear? YES (CONTROL BAR); Specific Gravity 1.015 (1.002-1.036); Urine Culture Reflex Yes Yes
[2022-09-24] MEDS ORDERED: Morphine 4 MG/ML VIAL SLOW IVP PRN (01:57)
[2022-09-24] MEDS ORDERED: Ondansetron ODT 4 MG TAB SL PRN (02:00)
[2022-09-24] MEDS ORDERED: Ondansetron PF 4 MG/2 ML Vial IVP PRN ×2 (02:00→17:03)
[2022-09-24] MEDS ORDERED: Ipratropium/Albuterol 3 ML NEB NEB PRN (04:50)
[2022-09-24] MEDS ORDERED: traMADol HCl 50 MG TAB PO PRN (04:50)
[2022-09-24] MEDS ORDERED: Cyclobenzaprine 10 MG TAB PO PRN (04:50)
[2022-09-24] MEDS: traMADol HCl 50 MG TAB PO SCH ×4 (06:00→16:28)
[2022-09-24] MEDS: Sodium Chloride 0.9% 1,000 ML IV SCH ×2 (06:20→11:25)
[2022-09-24 07:45] VITALS: BMI 48.2
[2022-09-24] MEDS: Senokot S 8.6-50 MG TAB PO SCH ×2 (08:15→21:37)
[2022-09-24] MEDS: Polyethylene Glycol 3350 17 GM Packet PO SCH (08:15)
[2022-09-24] MEDS: Ferrous Sulfate 325 MG TAB PO SCH (08:30)
[2022-09-24] MEDS: Ascorbic Acid 500 mg Chewable Tablet PO SCH (08:30)
[2022-09-24 09:51] LABS: #Basophils 0.1 thou/uL (0.0-0.2); #Eosinphils 0.4 thou/uL (0.0-0.7); #Monocytes 0.5 thou/uL (0.11-0.59); #Neutrophils 4.7 thou/uL (1.40-6.50); %Eosinophils 4.9 % (0.0-10.0); %Lymphocytes 23.7 % (21.0-51.0); %Monocytes 6.1 % (0.0-10.0); %Neutrophils 63.9 % (42.0-75.0); Hemoglobin 7.8 g/dL (12.0-16.0); Mean Corpuscular HGB CONC 29.3 g/dL (32.0-36.0); Mean Corpuscular Hemoglobin 19.4 pg (27.0-31.0); Mean Platelet Volume 9.4 fL (7.4-10.4); Platelet Count 333 10x3/uL (130-400); RBC Distribution Width 21.3 % (11.5-14.5); Red Blood Cell (RBC) Count 4.02 mill/uL (4.20-5.40); White Blood Cell (WBC) Count 7.3 10x3/uL (4.8-10.8)
[2022-09-24 09:52] LABS: Mean Corpuscular Volume 66.2 fl (78.0-98.0)
[2022-09-24 10:02] LABS: INR-International Normal Ratio 1.1; PTT 27.3 sec (22.9-36.1); Prothrombin Time 14.5 sec (12.0-14.7)
[2022-09-24 11:40] LABS: Bilirubin Negative (Negative); Blood, Urine 3+ (Negative); CAUTI Indications for Culture Dysuria,urgency,freq; Clarity Turbid (Clear); Glucose, Urine (Dipstick) Normal (Negative); Ketone, Urine Negative (Negative); Leukocyte 500 Leu/uL (Negative); Nitrite Negative (Negative); Protein, Urine (Dipstick) 70 mg/dL (Neg-Trace); RBC/HPF Greater than 50 HPF (0-3); Specific Gravity, Urine 1.017 (1.002-1.036); Urobilinogen Normal mg/dL (Less than 2); WBC/HPF Greater than 50 HPF (0-3)
[2022-09-24 11:42] LABS: Bacteria/HPF 1+ HPF (None Seen)
[2022-09-24] MEDS ORDERED: Bupivacaine/Epinephrine 0.25% 30 ML VIAL ONE (13:22)
[2022-09-24] MEDS ORDERED: fentaNYL PF 100 MCG/2 ML SYRINGE ONE (13:36)
[2022-09-24] MEDS ORDERED: Propofol 500 MG/50 ML VIAL ONE (13:36)
[2022-09-24] MEDS ORDERED: SUGAMMADEX SODIUM 200 MG/2 ML VIAL ONE (13:36)
[2022-09-24] MEDS ORDERED: Lidocaine 1% PF 5 ML VIAL ONE (13:44)
[2022-09-24] MEDS ORDERED: Dexamethasone 20 MG/5 ML VIAL ONE (13:44)
[2022-09-24] MEDS ORDERED: Esmolol 100 MG/10 ML VIAL ONE (13:44)
[2022-09-24] MEDS ORDERED: Rocuronium Bromide 10 MG/ML (10ML VIAL) ONE (13:44)
[2022-09-24] MEDS ORDERED: PROPOFOL 200 MG/20 ML VIAL ONE (13:44)
[2022-09-24] MEDS ORDERED: HYDROmorphone 0.5 MG/0.5 ML SYRINGE ONE (15:09)
[2022-09-24] MEDS ORDERED: fentaNYL 50 mcg/mL 1 mL Vial ONE ×3 (15:37→15:59)
[2022-09-25] MEDS: traMADol HCl 50 MG TAB PO SCH ×3 (00:05→11:15)
[2022-09-25 05:46] LABS: #Monocytes 0.5 thou/uL (0.11-0.59); #Neutrophils 7.5 thou/uL (1.40-6.50); %Basophils 0.1 % (0.0-1.0); %Lymphocytes 10.1 % (21.0-51.0); %Monocytes 5.3 % (0.0-10.0); %Neutrophils 84.2 % (42.0-75.0); Hemoglobin 7.9 g/dL (12.0-16.0); Mean Corpuscular HGB CONC 29.2 g/dL (32.0-36.0); Mean Corpuscular Hemoglobin 19.1 pg (27.0-31.0); Mean Corpuscular Volume 65.5 fl (78.0-98.0); Mean Platelet Volume 9.8 fL (7.4-10.4); Platelet Count 385 10x3/uL (130-400); RBC Distribution Width 21.7 % (11.5-14.5); Red Blood Cell (RBC) Count 4.14 mill/uL (4.20-5.40); White Blood Cell (WBC) Count 8.9 10x3/uL (4.8-10.8)
[2022-09-25 07:14] LABS: Anisocytosis MODERATE=16-30 cells HPF (0-5); CellaVision Operator ID LAB.JMM; Elliptocytes SLIGHT = 2-5 cells HPF (0-1); Hypochromia SLIGHT = 6-15 cells HPF (0-5); Microcytosis SLIGHT = 6-15 cells HPF (0-5); Platelet Adequacy Comment Platelets Normal; Polychromasia SLIGHT = 2-3 cells HPF (0-2)
[2022-09-25] MEDS: Ascorbic Acid 500 mg Chewable Tablet PO SCH (08:26)
[2022-09-25] MEDS: Polyethylene Glycol 3350 17 GM Packet PO SCH (08:26)
[2022-09-25] MEDS: Ferrous Sulfate 325 MG TAB PO SCH (08:26)
[2022-09-25] MEDS: Senokot S 8.6-50 MG TAB PO SCH (08:26)
[2022-09-25 08:33] LABS: Iron 18 ug/dL (50-170); Iron Binding Capacity, Total 448 mcg/dL (265-497)
[2022-09-25 13:55] VITALS: BP 125/75; TEMP 98.6
== END 2022-09-25 16:29 | disposition home or self-care (01) ==
LOC: ERS 21:04 → SURG A 09-24 01:44
PROVIDERS: ADMIT Specialist; ATTEND Specialist
PROC: 0FT44ZZ Resection of Gallbladder, Percutaneous Endoscopic Approach (ICD-10-PCS; principal; 2022-09-24)
DX: K80.12 Calculus of gallbladder with acute and chronic cholecystitis without obstruction (principal); N93.9 Abnormal uterine and vaginal bleeding, unspecified; D64.9 Anemia, unspecified; I10 Essential (primary) hypertension
CPT/HCPCS: 36415; 36430; 76705; 76856; 80053; 81001; 81025; 83540; 83550; 83690; 85025; 85610; 85730; 86850; 86900; 86901; 87086; 88304; 96374; 96375; C1889; G0378; J1100; J1170; J1885; J1956; J2405; J2704; J3010; J7050; P9016